=== PATIENT | male | born 1935 | race Two or more races ===

== ENCOUNTER 2018-10-12 13:35 | Inpatient (IN) | payer MEDICARE ==
[2018-10-12] VITALS (29 sets, daily range): BP systolic 69–140; BP diastolic 50–89; O2SAT 100
[~2018-10-12] VITALS: Ht 142.2 cm; Wt 63.6 kg
[2018-10-12 14:02] LABS: BASO % 0.1 % (0.0-1.0); EOS % 0.1 % (0.0-3.0); HEMATOCRIT 45.3 % (42.0-52.0); HEMOGLOBIN 15.8 g/dl (13.5-17.5); LYMPH # 1.7 10^3/uL (1.5-4.5); LYMPH % 12.4 % (24.0-44.0); MEAN CORPUSCULAR HEMOGLOBIN 34.1 pg (27.0-33.0); MEAN CORPUSCULAR HGB CONC 34.9 g/dl (32.0-36.5); MEAN CORPUSCULAR VOLUME 97.8 fl (80.0-96.0); MONO # 0.8 10^3/uL (0.0-0.8); MONO % 5.5 % (0.0-5.0); NEUTROPHILS # 11.1 10^3/uL (1.8-7.7); NEUTROPHILS % 80.7 % (36.0-66.0); PLATELET COUNT, AUTOMATED 274 10^3/uL (150-450); RED BLOOD COUNT 4.63 10^6/uL (4.30-6.10); WHITE BLOOD COUNT 13.8 10^3/uL (4.0-10.0)
[2018-10-12 14:08] LABS: ABG BASE EXCESS -7.7 (-2.0-2.0); ABG HCO3 23.1 MEQ/L (22.0-26.0); ABG O2 SATURATION 71.4 % (95.0-99.0); ABG PARTIAL PRESSURE O2 51.2 mmHg (75.0-100.0); ABG STANDARD HCO3 17.7 MEQ/L (22.0-26.0); ABG TOTAL CO2 25.3 MEQ/L (23.0-31.0)
[2018-10-12] MEDS ORDERED: ETOMIDATE INJ 20MG/10ML VIAL IV STA (14:08)
[2018-10-12] MEDS ORDERED: SUCCINYLCHOLINE INJ 200 MG/10 ML VIAL (J0330) IV STA (14:08)
[2018-10-12 14:16] LABS: ABG PARTIAL PRESSURE CO2 71.1 mmHg (35.0-45.0)
--- NOTE | 2018-10-12 15:02 | REP ---
Clinical: Status post intubation. Comparison: None. Findings: Endotracheal tube appears to be at the level of the maris/right mainstem bronchus and warrants repositioning. Tortuous thoracic aorta noted. Cardiac silhouette is within normal limits. Lung calzada demonstrate chronic-appearing interstitial changes without obvious focal consolidation, effusion, or pneumothorax. Skeletal structures intact. Impression: Cannot exclude right mainstem intubation and repositioning to the endotracheal tube may be warranted. Electronically Signed by Hiram Conrad MD 10/12/2018 02:54 P
[2018-10-12 15:11] LABS: AMPHETAMINES LEVEL URINE NEGATIVE (NEGATIVE); BARBITURATES URINE NEGATIVE (NEGATIVE); BENZODIAZEPINES URINE NEGATIVE (NEGATIVE); CANNABINOIDS URINE NEGATIVE (NEGATIVE); COCAINE METABOLITE URINE NEGATIVE (NEGATIVE); METHADONE URINE NEGATIVE (NEGATIVE); OPIATES URINE NEGATIVE (NEGATIVE); PHENCYCLIDINE URINE NEGATIVE (NEGATIVE)
[2018-10-12 15:15] LABS: ACETAMINOPHEN LEVEL < 2.0 UG/ML (10.0-30.0); ALT/SGPT 32 U/L (12-78); BILIRUBIN,DIRECT 0.2 MG/DL (0.0-0.2); BILIRUBIN,TOTAL 0.7 MG/DL (0.2-1.0); BLOOD UREA NITROGEN 36 MG/DL (7-18); CALCIUM LEVEL 7.7 MG/DL (8.8-10.2); CARBON DIOXIDE LEVEL 25 MEQ/L (21-32); CHLORIDE LEVEL 101 MEQ/L (98-107); CPK CREATINE PHOSPHOKINASE 7163 U/L (39-308); CREATININE FOR GFR 1.31 MG/DL (0.70-1.30); ETHYL ALCOHOL (ETHANOL) 0.003 % (0.000-0.010); GLOMERULAR FILTRATION RATE 59.4 (>49); GLUCOSE, FASTING 202 MG/DL (70-100); POTASSIUM SERUM 2.9 MEQ/L (3.5-5.1); SALICYLATE LEVEL < 1.7 MG/DL (5.0-30.0); SODIUM LEVEL 140 MEQ/L (136-145); TOTAL PROTEIN 6.9 GM/DL (6.4-8.2)
[2018-10-12] MEDS ORDERED: MIDAZOLAM INJ 2 MG/2 ML VIAL (J2250) IV STA (15:30)
[2018-10-12] MEDS ORDERED: NS 1,000 ML IV SCH (15:30)
--- NOTE | 2018-10-12 15:44 | REP ---
Clinical: Altered mental status. Findings: Age-related atrophy and microvascular ischemic changes are appreciated. The ventricles and sulci are symmetric. Smart-white differentiation is maintained. There is no evidence for acute intracranial hemorrhage, mass/mass effect, pathology or infarction. No extra-axial fluid collection. Calvarium is intact. Paranasal sinuses and mastoid air cells are clear. Impression: Age related atrophy and microvascular ischemic changes. No acute intracranial hemorrhage, infarction, or mass/mass effect. Electronically Signed by Hiram Conrad MD 10/12/2018 03:35 P
[2018-10-12 15:47] LABS: MAGNESIUM LEVEL 2.9 MG/DL (1.8-2.4); PHOSPHORUS LEVEL 6.4 MG/DL (2.5-4.9)
--- NOTE | 2018-10-12 15:49 | REP ---
Clinical: Altered mental status. Technique: Axial noncontrast images from the thoracic inlet to the upper abdomen with coronal and sagittal re-formations. Findings: Endotracheal tube approximately 1.5 cm above the maris. Nasogastric tube courses below left hemidiaphragm and distended fluid-filled esophagus and stomach are appreciated. Mediastinum demonstrates atherosclerotic changes to the thoracic aorta and coronary arteries along with ectasia to the thoracic aorta and cardiomegaly. Small pericardial fluid is nonspecific. Nonspecific mediastinal lymph nodes measure up to approximately 9 mm short axis diameter. The bilateral lung calzada demonstrate chronic age-related interstitial changes along with mild bronchiectasis and trace posterobasilar atelectasis. No significant focal consolidation, pleural effusion, or pneumothorax. Impression: 1. Distended fluid-filled esophagus and stomach. 2. Chronic pleuroparenchymal changes with trace posterobasilar atelectasis. 3. Cardiomegaly and ectatic thoracic aorta with atherosclerotic changes of the aorta and coronary arteries. Electronically Signed by Hiram Conrad MD 10/12/2018 03:40 P
--- NOTE | 2018-10-12 15:53 | REP ---
Clinical: Altered mental status. Technique: Axial noncontrast images from the lung bases to the pubic symphysis with coronal and sagittal re-formations. Comparison: None. Findings: Lung bases demonstrate chronic interstitial changes and mild bronchiectasis with trace posterobasilar atelectasis. Liver, spleen, pancreas, gallbladder, and bilateral adrenal glands are normal. The kidneys demonstrate hypodensities which may represent cysts. No perinephric stranding or hydroureteronephrosis. The enteric system demonstrates distended fluid-filled esophagus and moderate fluid-filled distension to the stomach. Evaluation of the small and large bowel suggest the possibility of enteritis and less likely early small bowel obstruction. Colonic diverticula noted without acute diverticulitis. Pelvis demonstrates a Glass catheter within the bladder. Prostate gland is within normal limits for age. No definite ascites. No free air. No obvious adenopathy. Atherosclerotic changes of the aorta and vasculature without aneurysm. Musculoskeletal structures demonstrate age-related degenerative changes. Impression: 1. Fluid-filled esophagus and moderate fluid-filled stomach. 2. Moderate air-filled prominent appearance to the small bowel raises the possibility of ileus versus early obstruction and correlation/follow-up may be warranted. 3. Scattered diverticula without acute diverticulitis. Electronically Signed by Hiram Conrad MD 10/12/2018 03:44 P
[2018-10-12] MEDS ORDERED: ETOMIDATE INJ 20MG/10ML VIAL ONE (16:02)
[2018-10-12] MEDS ORDERED: SUCCINYLCHOLINE 100 MG/5 ML SYRINGE (J0330) ONE (16:02)
[2018-10-12 16:43] LABS: ABG BASE EXCESS -3.7 (-2.0-2.0); ABG HCO3 21.8 MEQ/L (22.0-26.0); ABG PARTIAL PRESSURE CO2 40.8 mmHg (35.0-45.0); ABG PARTIAL PRESSURE O2 84.9 mmHg (75.0-100.0); ABG STANDARD HCO3 21.4 MEQ/L (22.0-26.0); ABG pH (ARTERIAL) 7.345 UNITS (7.350-7.450)
[2018-10-12 16:58] LABS: INR 1.05; PROTHROMBIN TIME 13.8 SECONDS (12.1-14.4)
[2018-10-12] MEDS ORDERED: MIDAZOLAM HCL 50 MG in D5W 40 ML IV SCH (17:00)
[2018-10-12 17:01] LABS: APPEARANCE, URINE CLEAR (CLEAR); BACTERIA, URINE AUTO NEGATIVE (NEGATIVE); BILIRUBIN, URINE AUTO NEGATIVE (NEGATIVE); BLOOD, URINE BLOOD 2+ (NEGATIVE); COLOR, URINE YELLOW (YELLOW); GLUCOSE, URINE (UA) AUTO NEGATIVE (NEGATIVE); KETONE, URINE AUTO 1+ mg/dL (NEGATIVE); LEUKOCYTE ESTERASE, URINE AUTO NEGATIVE (NEGATIVE); MUCUS, URINE SMALL (NEGATIVE); NITRITE, URINE AUTO NEGATIVE (NEGATIVE); PROTEIN, URINE AUTO 1+ mg/dL (NEGATIVE); RBC, URINE AUTO 1 /HPF (0-3); SPECIFIC GRAVITY URINE AUTO 1.021 (1.002-1.035); SQUAMOUS EPITHELIAL CELL UR AU 0 /HPF (0-6); UROBILINOGEN, URINE AUTO 0.2 mg/dL (0.0-2.0); WBC, URINE AUTO 1 /HPF (0-3)
[2018-10-12 17:11] LABS: MYOGLOBIN SCREEN, URINE POSITIVE (NEGATIVE); OSMOLALITY URINE 720 MOSM/KG (500-800)
[2018-10-12] MEDS ORDERED: PROPOFOL 1,000 MG in APPROPRIATE DILUENT 1 EA IV SCH ×2 (17:15→17:54)
[2018-10-12 17:18] LABS: MYOGLOBIN 16504 NG/ML (16-116)
[2018-10-12] MEDS ORDERED: fentaNYL 100 MCG/2 ML INJECTION (J3010) IV PRN (18:00)
[2018-10-12 19:19] LABS: OSMOLALITY SERUM 304 MOSM/KG (275-295)
[2018-10-12] MEDS ORDERED: PANTOPRAZOLE 40MG INJ (PROTONIX) (C9113) IV ONE (19:30)
[2018-10-12 19:58] LABS: BLOOD UREA NITROGEN 36 MG/DL (7-18); CALCIUM LEVEL 7.6 MG/DL (8.8-10.2); CARBON DIOXIDE LEVEL 22 MEQ/L (21-32); CHLORIDE LEVEL 107 MEQ/L (98-107); CPK CREATINE PHOSPHOKINASE 9894 U/L (39-308); CREATININE FOR GFR 1.01 MG/DL (0.70-1.30); FREE THYROXINE INDEX 3.2 % (1.4-3.8); GLOMERULAR FILTRATION RATE > 60.0 (>49); GLUCOSE, FASTING 125 MG/DL (70-100); MB/CK RELATIVE INDEX 0.32 (< OR =4); PHOSPHORUS LEVEL 4.8 MG/DL (2.5-4.9); POTASSIUM SERUM 2.8 MEQ/L (3.5-5.1); SODIUM LEVEL 143 MEQ/L (136-145); T UPTAKE 32 % (33-40); THYROID STIMULATING HORMONE 0.755 uIU/ML (0.358-3.740); THYROXINE (T4) 10.1 UG/DL (4.5-12.0); TROPONIN I 0.06 NG/ML (< 0.10); URIC ACID 5.5 MG/DL (3.5-7.2)
[2018-10-12] MEDS: NS 1,000 ML IV SCH ×2 (20:12→23:21)
[2018-10-12] MEDS: PANTOPRAZOLE SODIUM 40 MG in D5W 50 ML IV SCH ×2 (20:13→23:21)
[2018-10-12] MEDS: CHLORHEXIDINE GLUCONATE 0.12 % 15ML UDC (PERIDEX ORAL RINSE) MT SCH (20:13)
[2018-10-12] MEDS ORDERED: NS 1,000 ML IV ONE ×2 (20:15→22:30)
[2018-10-12 20:27] LABS: HEMATOCRIT 42.9 % (42.0-52.0); HEMOGLOBIN 14.6 g/dl (13.5-17.5); MEAN CORPUSCULAR HEMOGLOBIN 33.1 pg (27.0-33.0); MEAN CORPUSCULAR VOLUME 97.3 fl (80.0-96.0); PLATELET COUNT, AUTOMATED 257 10^3/uL (150-450); RED BLOOD COUNT 4.41 10^6/uL (4.30-6.10); WHITE BLOOD COUNT 11.5 10^3/uL (4.0-10.0)
[2018-10-12 20:29] LABS: MAGNESIUM LEVEL 2.3 MG/DL (1.8-2.4)
[2018-10-12] MEDS: KCL 10MEQ/100ML SWI (KRUN) 10 MEQ in APPROPRIATE DILUENT 1 EA IV SCH ×3 (20:41→23:22)
[2018-10-12] MEDS ORDERED: ENOXAPARIN 40 MG/0.4 ML SYRINGE (J1650) SC SCH (21:00)
[2018-10-12] MEDS ORDERED: HEPARIN SOD (PORCINE) 5000 UNITS/ML VIAL SQ SCH (21:00)
[2018-10-12] MEDS ORDERED: PANTOPRAZOLE 40MG INJ (PROTONIX) (C9113) IV SCH (21:00)
[2018-10-12] MEDS ORDERED: HYDROCORTISONE 100 MG/2 ML VIAL (J1720) IV ONE (22:30)
[2018-10-12] MEDS: D5W 1,000 ML IV SCH (23:22)
[2018-10-13] VITALS (42 sets, daily range): BP systolic 94–128; BP diastolic 58–79; O2SAT 100
[2018-10-13] MEDS: NS 1,000 ML IV SCH ×5 (00:38→15:15)
[2018-10-13 01:32] LABS: ALBUMIN 2.3 GM/DL (3.2-5.2); ALT/SGPT 30 U/L (12-78); BILIRUBIN,TOTAL 1.3 MG/DL (0.2-1.0); BLOOD UREA NITROGEN 38 MG/DL (7-18); CARBON DIOXIDE LEVEL 7 MEQ/L (21-32); CHLORIDE LEVEL 115 MEQ/L (98-107); CREATININE FOR GFR 1.26 MG/DL (0.70-1.30); GLOMERULAR FILTRATION RATE 58.5 (>35); GLUCOSE, FASTING 67 MG/DL (70-100); POTASSIUM SERUM 3.7 MEQ/L (3.5-5.1); SODIUM LEVEL 142 MEQ/L (136-145); TOTAL PROTEIN 5.3 GM/DL (6.4-8.2)
[2018-10-13] MEDS ORDERED: GLUCOSE 4 GM CHEW TABLET PO PRN (01:45)
[2018-10-13] MEDS ORDERED: GLUCAGON FOR INJ 1 MG VIAL (J1610) SC PRN (01:45)
[2018-10-13] MEDS ORDERED: DEXTROSE 50% 50 ML SYRINGE IV PRN (01:45)
[2018-10-13] MEDS: PANTOPRAZOLE SODIUM 40 MG in D5W 50 ML IV SCH ×4 (03:35→20:17)
[2018-10-13] MEDS: PROPOFOL 1,000 MG in APPROPRIATE DILUENT 1 EA IV SCH ×3 (03:35→20:18)
[2018-10-13 05:49] LABS: ABG BASE EXCESS -6.1 (-2.0-2.0); ABG HCO3 17.2 MEQ/L (22.0-26.0); ABG O2 SATURATION 95.6 % (95.0-99.0); ABG PARTIAL PRESSURE CO2 27.9 mmHg (35.0-45.0); ABG PARTIAL PRESSURE O2 80.2 mmHg (75.0-100.0); ABG STANDARD HCO3 19.5 MEQ/L (22.0-26.0); ABG pH (ARTERIAL) 7.407 UNITS (7.350-7.450)
--- NOTE | 2018-10-13 05:55 | ECGEPIP ---
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
[2018-10-13 06:12] LABS: HEMATOCRIT 36.9 % (42.0-52.0); MEAN CORPUSCULAR HEMOGLOBIN 33.1 pg (27.0-33.0); MEAN CORPUSCULAR VOLUME 103.7 fl (80.0-96.0); RED BLOOD COUNT 3.56 10^6/uL (4.30-6.10); WHITE BLOOD COUNT 9.6 10^3/uL (4.0-10.0)
[2018-10-13 06:33] LABS: HEMOGLOBIN 11.8 g/dl (13.5-17.5)
[2018-10-13 06:34] LABS: PLATELET COUNT, AUTOMATED 193 10^3/uL (150-450)
[2018-10-13 06:37] LABS: EOSINOPHILS 1 % (0-5); LYMPHOCYTES 6 % (16-52); MONOCYTES 8 % (0-8); NEUTROPHILS 84 % (35-75); PLATELET ESTIMATE NORMAL (NORMAL)
--- NOTE | 2018-10-13 06:37 | REP ---
Clinical: Status post intubation. Comparison: 01/10/2018. Findings: Endotracheal tube is 1.8 cm above the maris. Nasogastric tube courses below the left hemidiaphragm. Lung calzada demonstrate diffuse chronic interstitial changes and trace left basilar atelectasis cannot be excluded. No obvious effusion. No pneumothorax. Skeletal structures stable. Impression: Left basilar atelectasis cannot be excluded. Electronically Signed by Hiram Conrad MD 10/13/2018 06:29 A
[2018-10-13 06:53] LABS: ALBUMIN 2.8 GM/DL (3.2-5.2); ALT/SGPT 30 U/L (12-78); BILIRUBIN,TOTAL 0.9 MG/DL (0.2-1.0); BLOOD UREA NITROGEN 34 MG/DL (7-18); CALCIUM LEVEL 6.6 MG/DL (8.8-10.2); CARBON DIOXIDE LEVEL 19 MEQ/L (21-32); CHLORIDE LEVEL 110 MEQ/L (98-107); CPK CREATINE PHOSPHOKINASE 7976 U/L (39-308); CREATININE FOR GFR 1.14 MG/DL (0.70-1.30); GLOMERULAR FILTRATION RATE > 60.0 (>35); GLUCOSE, FASTING 95 MG/DL (70-100); MAGNESIUM LEVEL 1.9 MG/DL (1.8-2.4); PHOSPHORUS LEVEL 4.1 MG/DL (2.5-4.9); POTASSIUM SERUM 4.6 MEQ/L (3.5-5.1); SODIUM LEVEL 140 MEQ/L (136-145); TOTAL PROTEIN 5.3 GM/DL (6.4-8.2)
[2018-10-13] MEDS: CHLORHEXIDINE GLUCONATE 0.12 % 15ML UDC (PERIDEX ORAL RINSE) MT SCH ×2 (08:15→20:17)
[2018-10-13] MEDS ORDERED: CALCIUM GLUCONATE 1,000 MG in D5W MINI-BAG PLUS 100 ML IV ONE (10:15)
[2018-10-13] MEDS: AMPICILLIN SOD/SULBACTAM SOD 3 GM in D5W MINI-BAG PLUS 100 ML IV SCH ×3 (12:47→23:43)
[2018-10-13] MEDS: D5W 1,000 ML IV SCH (12:49)
--- NOTE | 2018-10-13 13:38 | HPE ---
DATE OF ADMISSION: 10/12/2018 CHIEF COMPLAINT: Hypothermia. HISTORY OF PRESENT ILLNESS: The patient is a estimated 62-year-old male, presumed to be Mr. Denise Quesada, although it is unconfirmed. He was found by EMS sitting outside a parked car with a six pack of beer next to him, of which two had been emptied, as well as with an empty bottle of diphenhydramine. The patient did have a pulse and was breathing, however he was very lethargic and minimally responsive. On arrival to the ED, he was noted to have some dried blood secretions around his nares and on his face. When he arrived to the ED, he was minimally responsive with a respiratory rate of 6-8 breaths per minute, so he was intubated for airway protection and respiratory depression. On arrival they were initially unable to obtain a rectal temperature, his body was cold to the touch. He then had a temperature of approximately 75 degrees Fahrenheit. The patient was started on active rewarming with warmed saline as well as with warmed ventilator and Sissy Hugger and heating lamps. The patient then reportedly had some mild agitation and was given Versed 2 mg IV push for sedation. The patient had a business card in his possession with the name of Denise Quesada and the car was also registered to a Mr. Denise Quesada, so it was presumed that this is who he is. There was no other contact information noted. PAST MEDICAL HISTORY: Unknown. PAST SURGICAL HISTORY: Unknown. ALLERGIES: Unknown. HOME MEDICATIONS: Unknown. PHYSICAL EXAMINATION: VITALS: Temperature 87 degrees Fahrenheit, pulse 90, blood pressure 162/126, saturating 96% on ventilator at 40% FiO2. GENERAL: The patient is not sedated. He is lethargic, withdraws to pain, but is no following commands. HEENT: There is dried blood noted in his nares as well as some dried blood on his face and a lip laceration on the right, which is oozing some blood. He is intubated, has an OG tube in place. His pupils are reactive, but unequal. Appears to have a surgical pupil in the right eye. Trachea is supple and midline. CVS: On the chest there is no evidence of any injuries. regular rate and rhythm, S1, S2. No murmurs are auscultated. Lungs: He has ventilator breath sounds bilaterally as well as some crackles at the bases. Abdomen: Soft, nontender. Does not appear distended. Extremities: There is no lower extremity edema noted bilaterally. There is some scabbed lesions and ecchymosis on his knees and elbows bilaterally LABS: WBC 13.8, hemoglobin 15.8, platelets 274. Sodium 140, potassium 2.9, chloride 101, bicarb 25, BUN 36, creatinine 1.31, glucose 202, lactic acid was 3.9, phosphorous 6.4, magnesium 2.9, AST 86, ALT 32, alkaline phosphatase 62, CPK 7163, myoglobin 16,504. TSH was 1.090. Coags: INR 1.05. Urine toxicology was negative. Salicylate and acetaminophen levels were low. Alcohol was 0.003. ABG initially was 7.130, pCO2 of 71.1, pO2 of 51.2. Repeat ABG was 7.345, pCO2 of 40.8, and pO2 of 84.9. IMAGING: The patient had a head CT done which did not show any acute intracranial hemorrhage, infarct or mass. There was some age related atrophy and microvascular ischemic changes. Chest CT showed endotracheal tube approximately 1.5 cm above the maris. NG tube is below the left diaphragm with distended fluid filled esophagus and stomach. In the lungs there is some atelectasis at the bases and some mild bronchiectasis. No focal consolidation. No significant pleural effusion. There are some atherosclerotic changes and the thoracic aorta appears large. There is a small pericardial effusion and some mildly prominent mediastinal lymph nodes. The esophagus also appears thickened. On the CT abdomen and pelvis, there is some fluid filled esophagus and moderate fluid filled distention to the stomach. There is some air filled prominent appearance of the small bowel, but no transition point, however, possible early ileus. There is colonic diverticula without acute diverticulitis. There is no obvious ascites or adenopathy. There is a likely renal cyst present. ASSESSMENT/PLAN: The patient is an estimated 62-year-old male with unknown medical history who was found outside severely hypothermic and unresponsive. Possible suicide attempt as the patient was found with an empty bottle of diphenhydramine sleeping aids as well as some alcohol, although this is unclear. He presented hypothermic and bradypneic with a respiratory acidosis. He was intubated and started on active rewarming. The patient was noted to have some evidence of dried blood in the nares as well as with OG tube suctioning some dark coffee ground material. Neuro- metabolic encephalopathy in setting of possible diphenhydramine ingestion and hypothermia. - sedated with propofol on ventilator - urine tox and aspirin and tylenol levels negative - cont monitor mental status and neurologic status CVS- EKG with some nonspecific ST changes possibly in setting of hypothermia. first set CE negative. will cont to trend CE and repeat EKG. - monitor BP, was initially hypertensive in ED Pulm- intubated for respiratory depression and AMS - noted to have evidence of dried blood on face and with intubation dark black material suctioned from ETT. - likely with aspiration, will cont to monitor for signs of possible aspiration PNA - cont ventilator with PRVC, wean down FiO2 as tolerated. - vent bundle, HOB elevation and chlorhexidine mouth swabs - daily CXR and ABGs Renal- electrolyte abnormalities in setting hypothermia. Also with TOMAS and myoglobinuria with elevated CPK consistent with rhabdomyolysis in setting hypothermia. - cont IVF with NS at 250ml/hr and monitor urine output - trend CPK and renal function - monitor electrolytes frequently during rewarming and correct as needed - check uric acid level - metabolic and respiratory acidosis improving. trend lactic acid. there was no osmolar gap suggesting other toxic ingestion/overdose GI- dark coffee ground material from OGT on suction. - start PPI drip and monitor H/H. expected to trend down with rewarming - type and screen. Deep vein thrombosis (DVT) prophylaxis with SCDs Will continue to attempt to get collateral information about the patient's identity and his health information. SKY
[2018-10-13 14:58] LABS: TROPONIN I 2.58 NG/ML (< 0.10)
[2018-10-13 17:23] LABS: HEMATOCRIT 37.6 % (42.0-52.0); HEMOGLOBIN 12.7 g/dl (13.5-17.5); MEAN CORPUSCULAR HEMOGLOBIN 33.5 pg (27.0-33.0); MEAN CORPUSCULAR HGB CONC 33.8 g/dl (32.0-36.5); MEAN CORPUSCULAR VOLUME 99.2 fl (80.0-96.0); PLATELET COUNT, AUTOMATED 205 10^3/uL (150-450); RED BLOOD COUNT 3.79 10^6/uL (4.30-6.10)
[2018-10-13] MEDS: HEPARIN SOD (PORCINE) 5000 UNITS/ML VIAL SQ SCH (20:17)
[2018-10-14] VITALS (13 sets, daily range): BP systolic 122–162; BP diastolic 66–81; O2SAT 94
[2018-10-14] MEDS: PANTOPRAZOLE SODIUM 40 MG in D5W 50 ML IV SCH ×2 (02:15→06:15)
[2018-10-14] MEDS: NS 1,000 ML IV SCH ×4 (02:16→10:38)
[2018-10-14] MEDS: D5W 1,000 ML IV SCH ×3 (02:45→16:40)
[2018-10-14 05:24] LABS: BASO % 0.1 % (0.0-1.0); EOS % 0.1 % (0.0-3.0); HEMATOCRIT 32.3 % (42.0-52.0); HEMOGLOBIN 11.1 g/dl (13.5-17.5); LYMPH # 1.1 10^3/uL (1.5-4.5); LYMPH % 14.5 % (24.0-44.0); MEAN CORPUSCULAR HEMOGLOBIN 32.8 pg (27.0-33.0); MEAN CORPUSCULAR HGB CONC 34.4 g/dl (32.0-36.5); MEAN CORPUSCULAR VOLUME 95.6 fl (80.0-96.0); MONO # 0.7 10^3/uL (0.0-0.8); MONO % 9.1 % (0.0-5.0); NEUTROPHILS # 5.7 10^3/uL (1.8-7.7); NEUTROPHILS % 75.8 % (36.0-66.0); PLATELET COUNT, AUTOMATED 163 10^3/uL (150-450); RED BLOOD COUNT 3.38 10^6/uL (4.30-6.10); WHITE BLOOD COUNT 7.5 10^3/uL (4.0-10.0)
[2018-10-14 05:43] LABS: INR 1.25; PROTHROMBIN TIME 15.9 SECONDS (12.1-14.4)
[2018-10-14 05:44] LABS: PARTIAL THROMBOPLASTIN TIME 39.1 SECONDS (25.4-37.6)
[2018-10-14] MEDS: AMPICILLIN SOD/SULBACTAM SOD 3 GM in D5W MINI-BAG PLUS 100 ML IV SCH ×4 (05:47→23:00)
[2018-10-14] MEDS: LEVOTHYROXINE 112MCG TABLET (0.112MG) NG SCH (05:48)
[2018-10-14 06:07] LABS: ABG BASE EXCESS -3.2 (-2.0-2.0); ABG O2 SATURATION 97.5 % (95.0-99.0); ABG PARTIAL PRESSURE O2 96.4 mmHg (75.0-100.0); ABG STANDARD HCO3 21.8 MEQ/L (22.0-26.0); ABG TOTAL CO2 20.9 MEQ/L (23.0-31.0); ABG pH (ARTERIAL) 7.441 UNITS (7.350-7.450)
[2018-10-14 06:12] LABS: ALBUMIN 2.2 GM/DL (3.2-5.2); ALT/SGPT 28 U/L (12-78); BILIRUBIN,TOTAL 0.6 MG/DL (0.2-1.0); BLOOD UREA NITROGEN 13 MG/DL (7-18); CALCIUM LEVEL 6.6 MG/DL (8.8-10.2); CARBON DIOXIDE LEVEL 21 MEQ/L (21-32); CHLORIDE LEVEL 114 MEQ/L (98-107); CPK CREATINE PHOSPHOKINASE 4288 U/L (39-308); CREATININE FOR GFR 0.87 MG/DL (0.70-1.30); GLOMERULAR FILTRATION RATE > 60.0 (>35); GLUCOSE, FASTING 95 MG/DL (70-100); MAGNESIUM LEVEL 1.8 MG/DL (1.8-2.4); MB/CK RELATIVE INDEX 0.15 (< OR =4); PHOSPHORUS LEVEL 2.1 MG/DL (2.5-4.9); POTASSIUM SERUM 3.1 MEQ/L (3.5-5.1); SODIUM LEVEL 144 MEQ/L (136-145); TOTAL PROTEIN 4.6 GM/DL (6.4-8.2); TROPONIN I 1.64 NG/ML (< 0.10)
[2018-10-14] MEDS: PROPOFOL 1,000 MG in APPROPRIATE DILUENT 1 EA IV SCH (06:15)
--- NOTE | 2018-10-14 08:08 | REP ---
Clinical: Status post intubation. Comparison: 10/13/2018. Findings: The endotracheal tube approximately 1.8 cm above the maris. Nasogastric tube courses below left hemidiaphragm. Left lower lobe and retrocardiac opacities may be slightly increased from prior examination. Skeletal structures stable. Impression: 1. Endotracheal tube 1.8 cm above the maris. 2. Left lower lobe/retrocardiac opacities increased from prior examination. Electronically Signed by Hiram Conrad MD 10/14/2018 07:58 A
[2018-10-14] MEDS ORDERED: KCL 20MEQ IN 100ML SWI (KRUN) 20 MEQ in APPROPRIATE DILUENT 1 EA IV ONE ×2 (08:30)
[2018-10-14] MEDS ORDERED: MAG SULF 1GM/100ML (MAG RUN) 1 GM in APPROPRIATE DILUENT 1 EA IV ONE (09:00)
[2018-10-14] MEDS ORDERED: POTASSIUM CHLORIDE 10% LIQ 20 MEQ/15 ML UDC PO ONE (09:00)
[2018-10-14] MEDS ORDERED: NEUTRA-PHOS 1.25 GM PACKET PO SCH (09:00)
[2018-10-14] MEDS ORDERED: FUROSEMIDE 40 MG/4 ML VIAL (J1940) IV ONE (09:00)
[2018-10-14] MEDS: KCL 10MEQ/100ML SWI (KRUN) 10 MEQ in APPROPRIATE DILUENT 1 EA IV SCH ×8 (09:14→23:00)
--- NOTE | 2018-10-14 09:16 | ECGEPIP ---
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
[2018-10-14] MEDS ORDERED: DEXTROSE 50% 50 ML SYRINGE IV STA (09:17)
[2018-10-14] MEDS: dexmedeTOMidine 200 MCG in APPROPRIATE DILUENT 1 EA IV SCH ×3 (09:17→10:17)
[2018-10-14] MEDS: HEPARIN SOD (PORCINE) 5000 UNITS/ML VIAL SQ SCH ×2 (09:29→21:05)
[2018-10-14] MEDS: CHLORHEXIDINE GLUCONATE 0.12 % 15ML UDC (PERIDEX ORAL RINSE) MT SCH (09:29)
--- NOTE | 2018-10-14 11:53 | CCN ---
DATE: 10/13/2018 Patient was seen and examined this morning. The patient's family was able to be contacted and his identity confirmed. The patient is from [place], [place] where he lives with his . He apparently had an argument with his on 10/09/2018, she did not see him Friday night and did not see him as well on Friday by the time she had woken up. His car did not appear to be there. The patient's thought that he had gone to stay in a hotel after the argument, but she had not heard from him for the past few days until he was found here in [place]. The patient's family otherwise denies that he had any symptom of depression or other mood changes leading up to this. He also was not noted to have any complaints of chest pain. No coughing. No fevers or chills. He was apparently golfing and doing his normal activities in his usual state of health prior to his. Of note, the patient's age was also confirmed to be 83 years old not the approximated 62 as estimated on admission. For his medical history, the patient's reported that he has a history of hypertension and hyperlipidemia as well as hypothyroidism and benign prostatic hypertrophy (BPH). The patient overnight was warmed up and the Sissy Hugger was discontinued. After that, he was noted to be mildly febrile with a T-max of 100.2. The patient is currently intubated and sedated. He is responsive minimally to painful stimulation and appears to open his eyes to voice. PHYSICAL EXAMINATION: VITALS: Temperature T-max 100.2, pulse 60, respirations 18, blood pressure 113/66, saturating 97% on 21% FiO2 on ventilator. INTAKE AND OUTPUT: Ins 3.6 liters, out 2 liters, net positive 1.6 liters. GENERAL: The patient is sedated. Responsive to painful stimuli. HEENT: He is normocephalic, is noted to have a laceration on his lip and occasional oozing. There is no bruising or ecchymoses to the face. There is some dried blood in his nares. NECK: Supple. Trachea is midline. CARDIAC: Regular rate and rhythm, S1 and S2. No murmurs appreciated. LUNGS: Coarse breath sounds bilaterally with occasional crackles at the bases. ABDOMEN: Soft, nondistended. No grimacing to palpation. EXTREMITIES: There is no lower extremity edema noted bilaterally. There is ecchymosis and hyperpigmentation in his knees bilaterally with some scabbing wounds. There is also some bruising and ecchymosis in his elbows as well bilaterally. On the knees, there does appear to be some fluctuance. LABS: WBC 9.6, hemoglobin 11.8, platelets 193. Sodium 140, potassium 4.6, chloride 110, bicarb 19, BUN 34, creatinine 1.14, glucose 95. Lactate trended down to 3.4, calcium was 6.6, corrected to 7.6. His repeat troponin is pending still. His repeat CPK has trended down to 7976. IMAGING: Chest x-ray done this morning shows the ET tube is approximately 2 cm above the maris and the NG tube is in place below the left diaphragm. There is some possible basilar atelectasis. ASSESSMENT/PLAN: Patient is an 83-year-old male with a past medical history of hypertension, hyperlipidemia, hypothyroidism, BPH, GERD, who was found outdoors minimally responsive, was also noted to have a bottle of Benadryl next to him with a suspicion of ingestion and overdose. The patient was hypothermic on presentation and lethargic and was intubated for airway protection. There was also noted some dried blood in his nares, and upon intubation there was suctioning of coffee ground material from his ET tube and upon place of the OG tube there was copious amounts of dark coffee ground material. The patient has been effectively rewarmed at this time. He was noted this morning to have a low grade fever. There was concern for possible aspiration with possible aspiration pneumonia given his presentation. Neurologic. The patient has metabolic encephalopathy in the setting of possible overdose as well as hypothermia. He had a head CT on admission which did not show any acute intracranial pathology, and his urine toxicology on admission was also negative. The patient may have had an ingestion of Benadryl. Unclear if this was a suicide attempt. His family had denied any evidence of depression or suicidal ideation leading up to this, except that he had an argument with his a few days ago and then was not seen since then The patient currently is sedated with propofol while intubated. I will perform a sedation vacation to assess his mental status. Cardiovascular. The patient has a history of hypertension. Overnight he was periodically hypotensive, but responded with IV fluid boluses. His blood pressure now remains stable. He was also given hydrocortisone 50 mg overnight for possible adrenal insufficiency in the setting his hypothermia and hypotension as well. Will hold off for now. Will follow-up repeat cardiac enzymes. His CK is elevated, likely in the setting of rhabdomyolysis for his hypothermia. I will hold antihypertensive medications for now. Pulmonary. The patient was intubated given his depressed mental status and bradypnea. He had a CT chest done which showed some atelectasis and mild bronchiectasis. There was concern for possible aspiration given that he was found with dried blood on his face from his nares. He was also noted to have a low grade fever this morning and on chest x-ray there is possible faint increased opacity in the left base. Therefore, the patient was started on Unasyn for possible aspiration pneumonia. Will check a sputum culture and blood culture. UA was negative on admission. Will continue the patient on PRVC. He has been weaned down to an FiO2 of 20% at this time. Will continue with daily ABG and chest x-ray. Continue with vent bundles with head of bed elevation and chlorhexidine mouthwash. Will continue with daily weaning trials and sedation vacation. Abdomen. Patient was noted after placement of the OG tube to suction to have coffee ground material, possibly with an upper gastrointestinal bleed. He does have a history of GERD. On the CT of the abdomen there was some fluid filled esophagus and fluid filled stomach with some air filled small bowel suggesting a possible ileus. There was no definite transition point noted. His abdominal exam today showed nondistended soft abdomen, did not appear to be any tenderness palpation. He has not had any bowel movements. His OG tube output has decreased. There was only minimal coffee ground material. He was started on a PPI drip yesterday. Will continue with the PPI drip. The patient had negative toxicology with a negative Tylenol and negative salicylate level. Continue OG tube to low intermittent suction at this time. Renal. The patient has acute kidney injury (TOMAS) as well as elevated CPK with myoglobinuria consistent with rhabdomyolysis. He was given IV fluids at maintenance as well as IV fluid boluses and his CPK is trending down and his creatinine has also improved. Will continue with normal saline at 250 mL an hour. The patient was also noted to be hypoglycemic and was on D5 at 75 mL an hour. The patient also had significant electrolyte derangement in the setting of his hypothermia, which has improved now. Will continue to monitor electrolytes and to replete as needed. The patient has a history of hypothyroidism and we now have his home medications, therefore will restart his Synthroid at 112 mcg daily. His TSH and free T4 were within normal limits on admission. Continue deep vein thrombosis (DVT) prophylaxis with thromboembolic deterrent stockings (TEDS) and sequential compression devices (SCD). GOALS OF CARE: Patient is a FULL CODE. His is in [place]. His daughters are in [place] and they are trying to see if they can be able to come and visit the patient. Total critical care time spent not including procedures approximately 55 minutes MTDD
--- NOTE | 2018-10-14 12:37 | ECHO ---
DATE OF PROCEDURE: 10/13/2018 REFERRING PHYSICIAN: Dr. Virginia Jenkins INDICATION: Elevated troponin, ischemia. The patient measures 4 feet 8 inches, weight 131 pounds. DIMENSIONS: IVS: 1.0 LV: 4.1 LVPW: 1.0 LA: 3.9 Aorta: 3.9 Ascending aorta: 4.2 IVC: 2.3 Mitral E-wave velocity: 110, A-wave 47 E prime septal: 5.2 E prime lateral: 7.6 FINDINGS: The study is of acceptable technical quality. Left ventricle is of normal size and overall normal systolic function. I do not appreciate any distinct segmental wall motion abnormality. Left ventricular ejection fraction (LVEF) is estimated around 60%. Right ventricle does not appear dilated and appears to be normally contractile. Both atria appear normal. Aortic valve has three leaflets. It is sclerotic but mobility is preserved. There are also mild degenerative abnormalities of mitral valves but mobility of leaflet is preserved. Tricuspid and pulmonic valves appear normal. No pericardial effusion is noted. Inferior vena cava is dilated, and there is no appreciable collapse with respiration but patient is intubated and ventilated. Aortic root and aortic arch appear normal. Visualized segment of ascending aorta is dilated at 4.2 cm. Abdominal aorta was poorly visualized but there appear to be atherosclerotic plaques. Doppler interrogation reveals trivial aortic stenosis and mild insufficiency. There is also mild mitral and mild tricuspid insufficiency. Calculated pulmonary artery pressure is at least in high 30s, which would correspond to mild pulmonary hypertension. Trace pulmonic insufficiency seen. Mitral inflow pattern and tissue Doppler imaging of mitral annulus reveal grade 2 diastolic dysfunction. CONCLUSIONS: 1. Study is of acceptable technical quality. 2. Normal LV size with normal LV systolic function and grade 2 diastolic dysfunction. 3. Aortic sclerosis resulting in trivial stenosis and mild insufficiency. 4. Mild mitral insufficiency. 5. Mild tricuspid insufficiency. 6. Elevated central venous pressure and at least mild pulmonary hypertension. COMMENTS: Subacute bacterial endocarditis (SBE) prophylaxis is not recommended. The study does not reveal any obvious wall motion abnormalities to account for elevated troponin. MTDD
--- NOTE | 2018-10-14 16:14 | PHACANCOPD ---
PHARMACY VANCOMYCIN DOSING Pt Demographics Demographics Patient Age:83 , Weight:63.600 , Gender: male Adjusted Body Weight Date: 10/14/18, Adjusted Body Weight: Kg Events Past 24 Hours Events Past 24 Hours: NO: Dialysis, Diuretic Therapy, Change in CrCl, Fever, Elevation in WBC, Pending Diagnostics, Pending Procedures, Other Vancomycin Vancomycin indication: pneumonia Vancomycin Target Ranges: 15-20 mcg/ml Vancomycin Load Y/N: No Load Dose Date Time Vancomycin Load Dose: Date: Time: Vancomycin Dose Date: 10/14/18. Current Vancomycin Dose: [1g IV q12h @16] Intermittent Dosing?: No Labs Labs Item Value Date Time Creatinine 0.87 MG/DL 10/14/18 0458 White Blood Count 9.6 10^3/uL 10/13/18 0601 White Blood Count 8.0 10^3/uL 10/13/18 1534 White Blood Count 7.5 10^3/uL 10/14/18 0458 Micro Microbiology 10/13/18 Blood Culture - Preliminary, Resulted No growth after 24 hours . All specim... 10/13/18 Gram Stain - Final, Resulted 10/13/18 Sputum Culture, Resulted Pending Creatinine Clearance Date:10/14/18. Creatinine Clearance: [~38 ml/min]. Pending Labs Vanco trough scheduled 10/15 @15:00 Assessment and Plan Maintaining Current Dose?: Yes Reason for dose change: No Dose Change Pharmacist Note Pharmacist Note Date: 10/14/18. Pharmacist note: pt has been started on Vancomycin 1g IV q12h for pneumonia. Sputum gram stain showed g+ cocci in ch and cl. He has been continued on Unasyn since yesterday. Pt has not been to our facility before. SCr has been improving since admission. I have a trough scheduled for tomorrow afternoon before the 3rd dose. We will continue to monitor and make adjustments as necessary. Ifeanyi Hopkins Pharm.D. Oct 14, 2018 16:13
[2018-10-14 16:16] LABS: ALBUMIN 2.6 GM/DL (3.2-5.2); ALT/SGPT 41 U/L (12-78); BILIRUBIN,TOTAL 0.9 MG/DL (0.2-1.0); BLOOD UREA NITROGEN 8 MG/DL (7-18); CALCIUM LEVEL 7.4 MG/DL (8.8-10.2); CARBON DIOXIDE LEVEL 25 MEQ/L (21-32); CHLORIDE LEVEL 111 MEQ/L (98-107); CREATININE FOR GFR 0.83 MG/DL (0.70-1.30); GLOMERULAR FILTRATION RATE > 60.0 (>35); GLUCOSE, FASTING 107 MG/DL (70-100); MAGNESIUM LEVEL 2.2 MG/DL (1.8-2.4); POTASSIUM SERUM 2.9 MEQ/L (3.5-5.1); SODIUM LEVEL 144 MEQ/L (136-145); TOTAL PROTEIN 5.5 GM/DL (6.4-8.2)
[2018-10-14] MEDS: VANCOMYCIN HCL 1,000 MG, VIAL MATE ADAPTER 1 EACH in D5W 250 ML IV SCH (16:40)
[2018-10-14] MEDS: KCL 20MEQ in NS 1000ML 1,000 ML IV SCH (16:45)
[2018-10-14] MEDS ORDERED: POTASSIUM CHLORIDE 10 MEQ SR TABLET PO ONE (17:00)
--- NOTE | 2018-10-14 17:42 | CCN ---
DATE: 10/14/2018 Patient was seen and examined today. Overnight he was noted to have a low grade temperature with a maximum temperature of 100.4. His blood pressures have been stable overnight. This morning patient was sedated but arousable and responsive and following commands appropriately. PHYSICAL EXAMINATION: Maximum temperature 100.4 overnight. It was up to 101.1 earlier in the day yesterday. Pulse 65, respirations 20, blood pressure 140/68, oxygen saturation 96% on 21% FiO2. INTAKE AND OUTPUT: In 8.5 out 2.4. Net positive 6 liters. GENERAL: Patient is intubated and sedated but responsive and following commands appropriately. HEENT: Normocephalic, atraumatic. There is scabbed and healing lip laceration. His neck is supple and trachea is midline. There is no palpable cervical adenopathy. CARDIOVASCULAR: Regular rate and rhythm. S1, S2. No murmurs appreciated. LUNGS: Coarse rhonchus breath sounds on the left with occasional crackles and some coarse ventilator breath sounds on the right. ABDOMEN: Soft, nontender and nondistended. EXTREMITIES: There is no lower extremity edema. There is some hyperpigmentation and ecchymosis in his knees bilaterally with some scabbing wounds. There is also some hyperpigmentation and ecchymosis in his elbows. The fluctuance in the knees appears to be improving. LABS: WBC 7.5, hemoglobin 11.1, platelets 183, sodium 144, potassium 3.1, chloride 114, bicarbonate 21, BUN 13, creatinine 0.87, glucose 95, troponin is trending down to 1.64, phosphorus 2.1, magnesium 1.8. IMAGING: Chest x-ray showed a trace right pleural effusion. The left base opacity and consolidation appears increased. There is some mild pulmonary vasculature congestion. The EG tube is in place and the OG tube is in place as well. MICROBIOLOGY: Sputum culture preliminary stain shows gram positive cocci. Final is pending. ASSESSMENT AND PLAN: Patient is an 83-year-old male with a history of hypertension, hyperlipidemia, hypothyroidism, BPH, GERD who was found to outdoors minimally responsive and was noted to have bottle of Benadryl next to him with the suspicion of ingestion and overdose, possible suicide attempt. Patient was hypothermic on presentation and lethargic and was intubated for airway protection. He was also noted to have some dried blood in his naris and mouth and upon intubation there was suctioning of coffee ground material from his ET tube and after placement of the OG tube there was copious amounts of dark black coffee ground material. Patient was rewarmed and then was noted to develop a fever. There was concern for aspiration pneumonia given his presentation and his chest x-ray today shows a worsening left lower lobe opacity. Neurology, patient had metabolic encephalopathy in the setting of possible Benadryl overdose and hypothermia. His CT head on admission did not show any acute intracranial pathology. His U-Tox was negative. Patient is currently sedated with propofol while intubated. We will wean down sedation and start Precedex to attempt to perform a weaning trial from the ventilator today. Cardiovascular, patient has a history of hypertension. He was hypotensive a few days ago but responded well with IV fluids and his blood pressures have now been stable. He is also status-post 1 dose of hydrocortisone 50 mg. Patient was noted to have some elevated cardiac enzymes likely in the setting of demand ischemia and rhabdomyolysis. His troponin has been trending down and his CPK has also been trending down. Will followup the results of his echo. Did not start any anticoagulation given his history of likely upper GI bleed. Will continue to monitor blood pressure and restart his antihypertensives as tolerated. Patient had elevated BNP and is significantly net positive and x-ray also shows some trace effusion now on the right and some possible effusion and consolidation on the left. We will give a dose of IV Lasix to facilitate possible weaning from the ventilator. Pulmonary, patient was intubated given his altered mental status. His CT chest showed atelectasis and mild bronchiectasis. There was concern for aspiration given his history and his chest x-ray now shows worsening left lower lobe opacity. Patient was also febrile likely with aspiration pneumonia. He was started on Unasyn. Will add vancomycin today given the sputum preliminary shows gram positive cocci and patient continues to be febrile. Will followup the final sputum culture results and deescalate depending on the results. Patient is on packed red blood cells. He has been weaned down to FiO2 of 21%. We will perform a weaning trial today and extubate the patient if possible. Continue with vent bundles while intubated and with ABG's and daily chest x-rays. Abdomen, patient had an OG tube placed after intubation which showed copious amount of coffee ground material possible with upper GI bleed. He does have a history of GERD. His OG tube output has significantly decreased. There was only minimal coffee ground material. He was on a PPI drip. We will transition to PPI twice a day. Continue OG tube to low intermittent suction. If patient is not able to be extubated today we will start tube feeds. Continue to trend his hemoglobin and hematocrit. Patient had a decrease in his hemoglobin initially in the setting of rewarming from hypothermia. His hemoglobin and hematocrit has remained stable now. Renal, patient has acute kidney injury with elevated CPK consistent with rhabdomyolysis. He was given aggressive IV fluid hydration and his CPK has been trending down and his creatinine has also improved. We will decreased normal saline to 100 mL an hour and continue with D5 for hypoglycemia. Patient also noted to have significant electrolyte derangements. We will repleate his electrolytes and followup repeat labs today. We will continue with Synthroid for his history of hypothyroidism. Deep venous thrombosis with SCD and TEDs. FULL CODE. Total critical care time spent not including any procedures approximately 55 minutes. MTDD
[2018-10-14] MEDS: PANTOPRAZOLE 40MG INJ (PROTONIX) (C9113) IV SCH (21:03)
[2018-10-14] MEDS: BLISTEX OINTMENT TOP SCH (21:04)
[2018-10-14] MEDS: NEUTRA-PHOS 1.25 GM PACKET PO SCH (21:04)
[2018-10-14] MEDS: ACETAMINOPHEN 325 MG/10.15 ML UDC GT PRN (21:04)
[2018-10-14 22:13] LABS: ALBUMIN 2.5 GM/DL (3.2-5.2); ALT/SGPT 42 U/L (12-78); BLOOD UREA NITROGEN 7 MG/DL (7-18); CARBON DIOXIDE LEVEL 27 MEQ/L (21-32); CHLORIDE LEVEL 112 MEQ/L (98-107); CPK CREATINE PHOSPHOKINASE 4327 U/L (39-308); CREATININE FOR GFR 0.79 MG/DL (0.70-1.30); GLOMERULAR FILTRATION RATE > 60.0 (>35); GLUCOSE, FASTING 115 MG/DL (70-100); POTASSIUM SERUM 3.4 MEQ/L (3.5-5.1); SODIUM LEVEL 144 MEQ/L (136-145); TOTAL PROTEIN 5.7 GM/DL (6.4-8.2)
[2018-10-15] VITALS (7 sets, daily range): BP systolic 98–143; BP diastolic 62–73
[2018-10-15] MEDS: KCL 10MEQ/100ML SWI (KRUN) 10 MEQ in APPROPRIATE DILUENT 1 EA IV SCH ×2
[2018-10-15] MEDS: KCL 20MEQ in NS 1000ML 1,000 ML IV SCH ×3 (01:52→19:30)
[2018-10-15 04:47] LABS: BASO % 0.3 % (0.0-1.0); EOS % 0.5 % (0.0-3.0); HEMATOCRIT 33.5 % (42.0-52.0); HEMOGLOBIN 11.4 g/dl (13.5-17.5); LYMPH # 0.9 10^3/uL (1.5-4.5); LYMPH % 12.3 % (24.0-44.0); MEAN CORPUSCULAR HEMOGLOBIN 33.2 pg (27.0-33.0); MEAN CORPUSCULAR VOLUME 97.7 fl (80.0-96.0); MONO # 0.7 10^3/uL (0.0-0.8); MONO % 9.2 % (0.0-5.0); NEUTROPHILS # 5.8 10^3/uL (1.8-7.7); NEUTROPHILS % 77.2 % (36.0-66.0); PLATELET COUNT, AUTOMATED 171 10^3/uL (150-450); RED BLOOD COUNT 3.43 10^6/uL (4.30-6.10); WHITE BLOOD COUNT 7.5 10^3/uL (4.0-10.0)
[2018-10-15] MEDS: VANCOMYCIN HCL 1,000 MG, VIAL MATE ADAPTER 1 EACH in D5W 250 ML IV SCH ×2 (05:07→16:34)
[2018-10-15 05:11] LABS: ALBUMIN 2.2 GM/DL (3.2-5.2); ALT/SGPT 37 U/L (12-78); BILIRUBIN,TOTAL 1.1 MG/DL (0.2-1.0); BLOOD UREA NITROGEN 6 MG/DL (7-18); CALCIUM LEVEL 7.1 MG/DL (8.8-10.2); CARBON DIOXIDE LEVEL 26 MEQ/L (21-32); CHLORIDE LEVEL 112 MEQ/L (98-107); CREATININE FOR GFR 0.73 MG/DL (0.70-1.30); GLOMERULAR FILTRATION RATE > 60.0 (>35); GLUCOSE, FASTING 95 MG/DL (70-100); MAGNESIUM LEVEL 2.1 MG/DL (1.8-2.4); PHOSPHORUS LEVEL 1.5 MG/DL (2.5-4.9); POTASSIUM SERUM 3.5 MEQ/L (3.5-5.1); SODIUM LEVEL 144 MEQ/L (136-145); TOTAL PROTEIN 5.4 GM/DL (6.4-8.2)
[2018-10-15] MEDS: LEVOTHYROXINE 112MCG TABLET (0.112MG) NG SCH (06:13)
[2018-10-15] MEDS: AMPICILLIN SOD/SULBACTAM SOD 3 GM in D5W MINI-BAG PLUS 100 ML IV SCH ×4 (06:13→23:09)
[2018-10-15 06:16] LABS: ABG BASE EXCESS 4.1 (-2.0-2.0); ABG HCO3 26.8 MEQ/L (22.0-26.0); ABG O2 SATURATION 98.3 % (95.0-99.0); ABG PARTIAL PRESSURE CO2 33.7 mmHg (35.0-45.0); ABG PARTIAL PRESSURE O2 104.8 mmHg (75.0-100.0); ABG STANDARD HCO3 28.1 MEQ/L (22.0-26.0); ABG TOTAL CO2 27.8 MEQ/L (23.0-31.0); ABG pH (ARTERIAL) 7.518 UNITS (7.350-7.450)
--- NOTE | 2018-10-15 08:03 | REP ---
Clinical: Intubation. Comparison: 10/14/2018. Findings: The patient is status post extubation. Cardiac silhouette is upper limits of normal and stable. Perihilar and bibasilar opacities with small pleural effusions similar to prior examination. No pneumothorax. Impression: Bibasilar pleuroparenchymal changes similar to prior examination. The patient has been extubated. Electronically Signed by Hiram Conrad MD 10/15/2018 07:53 A
[2018-10-15] MEDS: NEUTRA-PHOS 1.25 GM PACKET PO SCH ×3 (08:34→23:09)
[2018-10-15] MEDS: HEPARIN SOD (PORCINE) 5000 UNITS/ML VIAL SQ SCH ×2 (08:34→20:50)
[2018-10-15] MEDS: BLISTEX OINTMENT TOP SCH ×3 (08:34→21:00)
[2018-10-15] MEDS: PANTOPRAZOLE 40MG INJ (PROTONIX) (C9113) IV SCH (08:34)
[2018-10-15] MEDS ORDERED: POTASSIUM PHOSPHATE INJ 18 MMOL in D5W 250 ML IV ONE (11:00)
--- NOTE | 2018-10-15 12:45 | CCN ---
DATE: 10/15/2018 CRITICAL CARE PROGRESS NOTE: Patient was seen and examined today. He was extubated yesterday and has been doing well on just nasal cannula oxygen. This morning patient continues to have a hoarse voice, although it is improving. He reports feeling better today. He denies any chest pains. No shortness of breath. He does report a cough, although it is nonproductive currently. He has no abdominal pain. No nausea or vomiting. Overnight, patient had a low-grade fever with a maximum temperature (Tmax) of 100.5. PHYSICAL EXAMINATION: Maximum temperature (Tmax) 100.5. Current temperature (T-current) 99.0. Pulse 64, respirations 18, blood pressure 132/72, oxygen saturation 97% on 2 liters nasal cannula. In 3.2 liters, out 6.8, net negative 3.5 liters. General: Patient is awake and alert, is conversant appropriately and following commands. HEENT: Normocephalic, atraumatic. There is a scabbed and healing lip laceration. His neck is supple. Trachea is midline. There is no palpable cervical adenopathy. Cardiovascular: Regular rate and rhythm. S1 and S2. No murmurs appreciated. Lungs: Coarse rhonchus breath sounds on the left with occasional crackles and some rare crackles on the right base. Abdomen is soft, nontender and nondistended. Extremities: There is no lower extremity edema. There is some ecchymosis and scabbing in his knees bilaterally with some tenderness to palpation. The swelling in the knees appears to have resolved. He also has some ecchymosis in his elbows bilaterally. LABS: WBC 7.5, hemoglobin 11.4, platelets 171. Sodium 144, potassium 3.5, chloride 112, bicarbonate 26, BUN 6, creatinine 0.73, glucose 95. Calcium 7.1, phosphorus 1.5, magnesium 2.1, AST 83, ALT 37. His sputum culture shows Staphylococcus aureus, which is MSSA. Chest x-ray shows the trace effusion on the right is improved. The left base effusion is improved. There does continue to be some atelectasis/consolidation at that left base. His echo showed a normal EF with grade 2 diastolic dysfunction. There is mild aortic insufficiency and mild mitral valve insufficiency. There is evidence of an elevated CVP and some mild pulmonary hypertension. ASSESSMENT AND PLAN: Patient is an 83-year-old male with a history of hypertension, hyperlipidemia, hypothyroidism, BPH, gastroesophageal reflux disease (GERD). Patient was found by [facility] ([facility]) outdoors, was minimally responsive and had been noted to have bottle of Benadryl next to him with the suspicion of ingestion and overdose, possible suicide attempt. In the emergency department (ED), patient was hypothermic and lethargic and was intubated for airway protection. He is also noted after intubation to have suctioning of coffee ground material from his endotracheal tube (ET) tube and after placement of the orogastric (OG) tube there was copious amounts of dark black coffee ground liquid material from his OG tube. Patient was rewarmed and then was noted to develop a fever, and there was concern for aspiration pneumonia given his presentation and an increased left lower lobe opacity. The patient was started on antibiotics. Yesterday, he was successfully extubated. Neurological: Patient with metabolic encephalopathy in the setting of possible Benadryl overdose and hypothermia. His CT head on admission did not show any acute intracranial pathology. His U-Tox was negative. His aspirin and salicylates were negative. Patient is awake and alert currently, and conversant appropriately. After some questioning about the events leading up to this presentation, patient does not remember getting out of his car and sitting down outside. He does remember taking some sleeping pills but he denied to me that it was an attempt to harm himself or to end his life. However, when nurses had questioned him earlier, he seemed to indicate that he had been attempting a suicide attempt. Patient is also unclear about how ended up in [place]. He denied that there were any other people involved with these events. Patient is on a 1:1 observation for possible suicide attempt. Will need a psychiatric evaluation. Cardiovascular: Patient has a history of hypertension. He was hypotensive a requiring IV fluid boluses and a dose of hydrocortisone but his blood pressures have improved. Patient was also noted to have Troponemia likely with demand ischemia in the setting of his hypothermia and rhabdomyolysis. His troponins have trended down and his creatinine phosphokinase (CPK) has been continuing to trend down. His echo showed normal EF with some diastolic dysfunction. There was evidence of increased central venous pressure (CVP) and some mild pulmonary hypertension. No significant valvular pathology. He was given a dose of Lasix given his elevated brain natriuretic peptide (BNP) and to facilitate extubation yesterday. He has had significant diuresis and his chest x-ray shows some improvement in the trace effusions noted previously. Will continue to monitor intakes and outputs. His IV fluids have been decreased. Pulmonary: Patient was intubated given his altered mental status. His CT chest showed atelectasis and some bronchiectasis. Patient had also developed a fever and he had increasing opacity in the left lower lobe likely with aspiration pneumonia. He was started on Unasyn and then with vancomycin given his preliminary sputum showed gram positive cocci. Final sputum culture results show Staphylococcus aureus with MSSA. Therefore, would recommend de-escalating antibiotics. He does continue to have some low grade fevers. Although, his white count has significantly improved. Patient was extubated yesterday and has been doing well on nasal cannula. Will continue to wean down nasal cannula supplementation as tolerated. Abdomen: Patient on admission had been noted to have some coffee ground material from his OG tube with a possible upper gastrointestinal (GI) bleed. He does have a history of GERD, was started on a proton pump inhibitor (PPI) drip and transitioned to PPI twice a day. He was able to tolerate clear liquids yesterday and his hemoglobin has been stable. Will advance his diet as tolerated. Renal: Patient had acute kidney injury (TOMAS) with elevated creatinine phosphokinase (CPK) consistent with rhabdomyolysis. He was given aggressive IV fluid hydration and his CPK and creatinine have been improving. We will continue to decrease his IV fluids as the patient's diet is being advanced. He did have some hypoglycemia and is on D5 currently. Will discontinue once the patient is able tolerate oral. Patient continues to have some electrolyte derangements. Will replete as needed and followup repeat. Continue with Synthroid for his hypothyroidism. Deep venous thrombosis (DVT) prophylaxis: heparin Patient is FULL CODE. Total critical care time spent not including any procedures approximately 45 minutes. MTDD
--- NOTE | 2018-10-15 13:03 | IPN ---
DATE: 10/15/2018 Mr. Quesada was transferred to the hospitalist service today. The case was reviewed with Dr. Jenkins who was his sterile process tech. The patient was admitted with hypothermia after presumed intentional overdose with Benadryl. The circumstances have been previously documented. At this point, his medical problems include metabolic encephalopathy in the setting of possible Benadryl overdose and hypothermia, hypotension that responded to IV fluids initially then required IV Lasix for volume overload, rhabdomyolysis with a CPK that is trending down, probable aspiration pneumonia for which he is currently on IV antibiotics, possible upper GI bleed or at least stress ulceration with coffee ground material noted on intubation, and per his has a history of unspecified gastric problems. Per his , he is more alert today although she is concerned about edema of his hands. PHYSICAL EXAMINATION: Afebrile. 133/72. He awakens and responds to question. Neck is supple. Lungs decreased breath sounds, few rhonchi. Heart regular rhythm. Abdomen soft, nontender. No peripheral edema. Edema of the hands noted. Labs: White count 7.5, hemoglobin 11.4, platelets 171, sodium 144, potassium 3.5, BUN 6, creatinine 0.7, glucose 93, CPK is down to 2500. Blood sugars have been normal. TSH on admission was normal. IMPRESSION: 1. Intentional Benadryl overdose. Will get psychiatry involved once the patient is out of ICU. The patient should be considered for inpatient mental health hospitalization. Will defer to psychiatry for final opinion on this. 2. Probably aspiration pneumonia, on Unasyn day 3, vancomycin day 2. 3. Hypothyroidism. TSH is therapeutic on current levothyroxine 112 mcg daily. 4. Presumed upper GI bleed on IV Protonix. Will change this to p.o. Protonix. There is no sign of active bleeding at this point. Hemoglobin has been stable.
--- NOTE | 2018-10-15 16:22 | PHACANCOPD ---
PHARMACY VANCOMYCIN DOSING Pt Demographics Demographics Patient Age:83 , Weight:63.600 , Gender: male Adjusted Body Weight Date: 10/14/18, Adjusted Body Weight: Kg Events Past 24 Hours Events Past 24 Hours: YES: Change in CrCl; NO: Dialysis, Diuretic Therapy, Fever, Elevation in WBC, Pending Diagnostics, Pending Procedures, Other Vancomycin Vancomycin indication: pneumonia Vancomycin Target Ranges: 15-20 mcg/ml Vancomycin Load Y/N: No Load Dose Date Time Vancomycin Load Dose: Date: Time: Vancomycin Dose Date: 10/14/18. Current Vancomycin Dose: [1g IV q12h @16] Intermittent Dosing?: No Labs Labs Vital Signs Label Value Date Time Patient Temperature 99.0 degrees F 10/15/18 0800 Temperature Source Temporal 10/15/18 0800 Patient Temperature 99.7 degrees F 10/15/18 0400 Temperature Source Temporal 10/15/18 0400 Patient Temperature 100.3 degrees F 10/15/18 0000 Temperature Source Urinary Catheter 10/15/18 0000 Patient Temperature 100.5 degrees F 10/14/18 2000 Temperature Source Urinary Catheter 10/14/181999 Item Value Date Time White Blood Count 7.5 10^3/uL 10/15/18 0431 White Blood Count 8.0 10^3/uL 10/13/18 1534 White Blood Count 7.5 10^3/uL 10/14/18 0458 Creatinine 0.83 MG/DL 10/14/18 1533 Creatinine 0.79 MG/DL 10/14/18 2120 Creatinine 0.73 MG/DL 10/15/18 0431 Vancomycin Level Trough 7.6 UG/ML L 10/15/18 1451 Micro Microbiology 10/13/18 Blood Culture - Preliminary, Resulted No Growth after 48 hours. All Specime... 10/13/18 Gram Stain - Final, Complete 10/13/18 Sputum Culture - Final, Complete Staphylococcus Aureus Creatinine Clearance Date:10/14/18. Creatinine Clearance: [~38 ml/min]. Pending Labs Vanco trough scheduled 10/15 @15:00 Assessment and Plan Maintaining Current Dose?: Yes Reason for dose change: Trough too low Pharmacist Note Pharmacist Note 10/15: Trough after 2 doses resulted at 7.6mcg/ml. I have scheduled the pt an additional 500mg for 1700 to help load her. She is not yet at steady state. Her labs grew MSSA, so tomorrow I would recommend trying to streamline abx. We will continue to monitor and adjust dose as needed. Date: 10/14/18. Pharmacist note: pt has been started on Vancomycin 1g IV q12h for pneumonia. Sputum gram stain showed g+ cocci in ch and cl. He has been continued on Unasyn since yesterday. Pt has not been to our facility before. SCr has been improving since admission. I have a trough scheduled for tomorrow afternoon before the 3rd dose. We will continue to monitor and make adjustments as necessary. ZENIA BRONSON PHARMAC[facility] Oct 15, 2018 16:22
[2018-10-15] MEDS ORDERED: VANCOMYCIN HCL 500 MG in D5W MINI-BAG PLUS 100 ML IV ONE (17:00)
[2018-10-15] MEDS: PANTOPRAZOLE 40MG TAB (PROTONIX) PO SCH (20:50)
[2018-10-16] MEDS: VANCOMYCIN HCL 1,000 MG, VIAL MATE ADAPTER 1 EACH in D5W 250 ML IV SCH ×2 (04:00→16:44)
[2018-10-16] MEDS: LEVOTHYROXINE 112MCG TABLET (0.112MG) NG SCH (05:14)
[2018-10-16] MEDS: AMPICILLIN SOD/SULBACTAM SOD 3 GM in D5W MINI-BAG PLUS 100 ML IV SCH ×2 (05:14→11:46)
[2018-10-16] MEDS: KCL 20MEQ in NS 1000ML 1,000 ML IV SCH ×2 (05:30→15:30)
[2018-10-16 06:00] VITALS: BP 131/66
[2018-10-16 06:07] LABS: BASO % 0.3 % (0.0-1.0); EOS # 0.1 10^3/uL (0.0-0.50); EOS % 1.2 % (0.0-3.0); HEMATOCRIT 31.1 % (42.0-52.0); HEMOGLOBIN 10.4 g/dl (13.5-17.5); LYMPH % 16.4 % (24.0-44.0); MEAN CORPUSCULAR HEMOGLOBIN 32.9 pg (27.0-33.0); MEAN CORPUSCULAR HGB CONC 33.4 g/dl (32.0-36.5); MEAN CORPUSCULAR VOLUME 98.4 fl (80.0-96.0); MONO # 0.7 10^3/uL (0.0-0.8); MONO % 11.4 % (0.0-5.0); NEUTROPHILS # 4.2 10^3/uL (1.8-7.7); NEUTROPHILS % 70.4 % (36.0-66.0); PLATELET COUNT, AUTOMATED 193 10^3/uL (150-450); RED BLOOD COUNT 3.16 10^6/uL (4.30-6.10); WHITE BLOOD COUNT 5.9 10^3/uL (4.0-10.0)
[2018-10-16 06:39] LABS: ALT/SGPT 44 U/L (12-78); BILIRUBIN,TOTAL 0.9 MG/DL (0.2-1.0); BLOOD UREA NITROGEN 7 MG/DL (7-18); CALCIUM LEVEL 7.4 MG/DL (8.8-10.2); CARBON DIOXIDE LEVEL 27 MEQ/L (21-32); CHLORIDE LEVEL 110 MEQ/L (98-107); CREATININE FOR GFR 0.67 MG/DL (0.70-1.30); GLOMERULAR FILTRATION RATE > 60.0 (>35); GLUCOSE, FASTING 103 MG/DL (70-100); PHOSPHORUS LEVEL 2.3 MG/DL (2.5-4.9); POTASSIUM SERUM 3.4 MEQ/L (3.5-5.1); SODIUM LEVEL 145 MEQ/L (136-145); TOTAL PROTEIN 5.2 GM/DL (6.4-8.2)
[2018-10-16] MEDS: NEUTRA-PHOS 1.25 GM PACKET PO SCH ×3 (11:45→20:02)
[2018-10-16] MEDS: PANTOPRAZOLE 40MG TAB (PROTONIX) PO SCH ×2 (11:45→20:03)
[2018-10-16] MEDS: HEPARIN SOD (PORCINE) 5000 UNITS/ML VIAL SQ SCH ×2 (11:46→20:03)
[2018-10-16] MEDS: BLISTEX OINTMENT TOP SCH ×3 (11:46→20:03)
--- NOTE | 2018-10-16 13:57 | REP ---
Clinical: Patellar pain. Technique: AP, lateral, bilateral oblique and sunrise views of the left knee. Findings: Generalized age-related degenerative changes are noted to the tibiofemoral joint space. Mild cortical irregularity to the femoral condyle is identified along with very subtle spurring at the medial tibial spine. Lateral and sunrise views demonstrate slight increase sclerosis and fraying along the anterior patellar margin along with patellofemoral joint space narrowing consistent with patellar tendinopathy. No acute fracture dislocation. No effusion. Impression: Mild patellar tendinopathy. Electronically Signed by Hiram Conrad MD 10/16/2018 01:49 P
[2018-10-16 14:00] VITALS: BP 139/70
[2018-10-16] MEDS: CEPACOL LOZENGE PO PRN ×2 (17:06→20:02)
[2018-10-16 22:00] VITALS: BP 134/70
[2018-10-17] MEDS: KCL 20MEQ in NS 1000ML 1,000 ML IV SCH ×3 (00:29→23:15)
--- NOTE | 2018-10-17 00:34 | IPN ---
DATE: 10/16/2018 Mr. Quesada is seen on [facility]. He says has a lot of cough and congestion. He still feels is very full in his chest and has trouble bringing up his secretions. He is still quite hoarse from the intubation. No cardiac symptoms. No chest pain, not terribly short of breath. Expressing no suicidal thoughts or intentions. PHYSICAL EXAM: 131/66, pulse is 60, afebrile and 96% oxygen saturation on room air. General appearance: He is resting comfortably. No distress. Lungs: Bibasilar rhonchi. A lot of upper airway transmitted noises from airway congestion. Heart: Regular rhythm. Abdomen: Soft. Nontender. Left knee is tender to palpate over the patella where there is an abrasion. No peripheral edema. LABS: CBC is unremarkable and unchanged. Electrolytes: Potassium 3.4, BUN and creatinine 7/0.6. Blood sugar 103. IMPRESSION: 1. Aspiration pneumonia. We have isolated methicillin-resistant staph from his sputum, and he is currently on vancomycin and Zosyn. We will discontinue the Zosyn. 2. Intentional overdose with Benadryl. I have not had psychiatry see him yet. He is still fairly ill from the pneumonia. Probably will not have psychiatry see him until Friday. 3. Hypothyroidism. Thyroid-stimulating hormone (TSH) normal on current dose of levothyroxine. 4. Upper gastrointestinal (GI) bleed. No recurrence. He is on Protonix. 5. Stress ischemia with elevated troponins. No sign of ongoing cardiac symptoms. 6. Rhabdomyolysis. This has resolved. 7. Acute kidney injury. This resolved with hydration. His daughter is here from [place]. Spent a lot of time with the daughter and patient's , with his permission, reviewing the case and answering questions concerning his various current medical issues.
[2018-10-17] MEDS: VANCOMYCIN HCL 1,000 MG, VIAL MATE ADAPTER 1 EACH in D5W 250 ML IV SCH (03:35)
[2018-10-17] MEDS: CEPACOL LOZENGE PO PRN ×3 (03:40→20:33)
[2018-10-17] MEDS: LEVOTHYROXINE 112MCG TABLET (0.112MG) NG SCH (05:39)
[2018-10-17 06:00] VITALS: BP 133/70
[2018-10-17 06:13] LABS: BASO % 0.4 % (0.0-1.0); EOS # 0.2 10^3/uL (0.0-0.50); EOS % 3.2 % (0.0-3.0); HEMATOCRIT 29.9 % (42.0-52.0); HEMOGLOBIN 10.3 g/dl (13.5-17.5); LYMPH # 0.7 10^3/uL (1.5-4.5); LYMPH % 12.5 % (24.0-44.0); MEAN CORPUSCULAR HEMOGLOBIN 32.8 pg (27.0-33.0); MEAN CORPUSCULAR HGB CONC 34.4 g/dl (32.0-36.5); MEAN CORPUSCULAR VOLUME 95.2 fl (80.0-96.0); MONO # 0.7 10^3/uL (0.0-0.8); MONO % 13.3 % (0.0-5.0); NEUTROPHILS # 3.9 10^3/uL (1.8-7.7); NEUTROPHILS % 69.9 % (36.0-66.0); PLATELET COUNT, AUTOMATED 215 10^3/uL (150-450); RED BLOOD COUNT 3.14 10^6/uL (4.30-6.10); WHITE BLOOD COUNT 5.6 10^3/uL (4.0-10.0)
[2018-10-17 06:39] LABS: ALBUMIN 2.1 GM/DL (3.2-5.2); ALT/SGPT 55 U/L (12-78); BILIRUBIN,TOTAL 0.8 MG/DL (0.2-1.0); BLOOD UREA NITROGEN 7 MG/DL (7-18); CALCIUM LEVEL 7.7 MG/DL (8.8-10.2); CARBON DIOXIDE LEVEL 29 MEQ/L (21-32); CHLORIDE LEVEL 105 MEQ/L (98-107); CREATININE FOR GFR 0.63 MG/DL (0.70-1.30); GLOMERULAR FILTRATION RATE > 60.0 (>35); GLUCOSE, FASTING 101 MG/DL (70-100); MAGNESIUM LEVEL 1.9 MG/DL (1.8-2.4); PHOSPHORUS LEVEL 3.1 MG/DL (2.5-4.9); POTASSIUM SERUM 3.8 MEQ/L (3.5-5.1); SODIUM LEVEL 139 MEQ/L (136-145); TOTAL PROTEIN 5.4 GM/DL (6.4-8.2)
[2018-10-17] MEDS: HEPARIN SOD (PORCINE) 5000 UNITS/ML VIAL SQ SCH ×2 (10:19→20:34)
[2018-10-17] MEDS: NEUTRA-PHOS 1.25 GM PACKET PO SCH ×3 (10:19→20:34)
[2018-10-17] MEDS: PANTOPRAZOLE 40MG TAB (PROTONIX) PO SCH ×2 (10:20→20:34)
[2018-10-17] MEDS: BLISTEX OINTMENT TOP SCH ×3 (10:20→20:34)
--- NOTE | 2018-10-17 13:59 | IPN ---
DATE: 10/17/2018 Mr. Quesada is about the same. He has a lot of chest congestion and he has staphylococcus aureus aspiration pneumonia. He is on Vancomycin for this. PHYSICAL EXAMINATION: 99.1, maximum temperature was 99.2, 133/70. GENERAL APPEARANCE: Elderly, resting in bed. Frequent cough. LUNGS: Scattered rhonchi but better than yesterday. HEART: Regular rate and rhythm. ABDOMEN: Soft and nontender. Left is a little tender to palpation. No edema. LABS: CBC is stable. Electrolytes were unremarkable. Blood sugars are normal. IMPRESSION: 1. Aspiration pneumonia with methicillin sensitive staphylococcus in his sputum. Continue vancomycin. We discontinued his Zosyn yesterday. 2. Potential overdose on Benadryl. Once he is medically stable we will get psychiatry to see him, probably on 10/19/2018. 3. Hypothyroidism. TSH is normal. 4. Upper GI bleed, no recurrence on Protonix. 5. Stress ischemia with elevated tropin. No evidence of ongoing cardiac symptoms. 6. Acute kidney injury resolved with hydration . I expect his hospitalization to extend in to the early next week and then evaluation by psychiatry for safety after the overdose.
[2018-10-17 14:00] VITALS: BP_SYST 136; BP_SYST 154; BP_DIAS 68; BP_DIAS 77
[2018-10-17] MEDS: ceFAZolin SOD 1 GM in D5W MINI-BAG PLUS 50 ML IV SCH ×2 (16:25→23:12)
[2018-10-17 22:00] VITALS: BP 144/70
[2018-10-18] MEDS: LEVOTHYROXINE 112MCG TABLET (0.112MG) NG SCH (05:16)
[2018-10-18 05:59] LABS: BASO % 0.4 % (0.0-1.0); EOS # 0.2 10^3/uL (0.0-0.50); EOS % 3.9 % (0.0-3.0); HEMATOCRIT 30.2 % (42.0-52.0); HEMOGLOBIN 10.3 g/dl (13.5-17.5); LYMPH # 0.9 10^3/uL (1.5-4.5); LYMPH % 17.2 % (24.0-44.0); MEAN CORPUSCULAR HEMOGLOBIN 32.6 pg (27.0-33.0); MEAN CORPUSCULAR HGB CONC 34.1 g/dl (32.0-36.5); MEAN CORPUSCULAR VOLUME 95.6 fl (80.0-96.0); MONO # 0.7 10^3/uL (0.0-0.8); MONO % 13.9 % (0.0-5.0); NEUTROPHILS # 3.3 10^3/uL (1.8-7.7); NEUTROPHILS % 63.8 % (36.0-66.0); PLATELET COUNT, AUTOMATED 239 10^3/uL (150-450); RED BLOOD COUNT 3.16 10^6/uL (4.30-6.10); WHITE BLOOD COUNT 5.2 10^3/uL (4.0-10.0)
[2018-10-18 06:00] VITALS: BP 125/65
[2018-10-18 06:20] LABS: ALT/SGPT 58 U/L (12-78); BILIRUBIN,TOTAL 0.7 MG/DL (0.2-1.0); BLOOD UREA NITROGEN 9 MG/DL (7-18); CALCIUM LEVEL 7.8 MG/DL (8.8-10.2); CARBON DIOXIDE LEVEL 30 MEQ/L (21-32); CHLORIDE LEVEL 106 MEQ/L (98-107); CREATININE FOR GFR 0.64 MG/DL (0.70-1.30); GLOMERULAR FILTRATION RATE > 60.0 (>35); GLUCOSE, FASTING 94 MG/DL (70-100); MAGNESIUM LEVEL 1.9 MG/DL (1.8-2.4); POTASSIUM SERUM 3.8 MEQ/L (3.5-5.1); SODIUM LEVEL 141 MEQ/L (136-145); TOTAL PROTEIN 5.3 GM/DL (6.4-8.2)
[2018-10-18] MEDS: ceFAZolin SOD 1 GM in D5W MINI-BAG PLUS 50 ML IV SCH ×3 (08:22→23:29)
[2018-10-18] MEDS: HEPARIN SOD (PORCINE) 5000 UNITS/ML VIAL SQ SCH ×2 (08:22→20:43)
[2018-10-18] MEDS: NEUTRA-PHOS 1.25 GM PACKET PO SCH ×2 (08:22→16:10)
[2018-10-18] MEDS: PANTOPRAZOLE 40MG TAB (PROTONIX) PO SCH ×2 (08:22→20:42)
[2018-10-18] MEDS: BLISTEX OINTMENT TOP SCH ×3 (08:23→20:43)
[2018-10-18] MEDS: KCL 20MEQ in NS 1000ML 1,000 ML IV SCH ×2 (08:45→17:16)
--- NOTE | 2018-10-18 11:03 | IPNPDOC ---
Date Seen The patient was seen on 10/18/18. Progress Note SUBJECTIVE: patient seen and examined at bedside , in no apparent distress T max overnight 99.1, on day of 2 ancef for MSSA pneumonia, had 3 days of vancomycin . complains of some sore throat with swallowing, tolerating diet well, no other acute complaints OBJECTIVE PHYSICAL EXAMINATION: VITAL SIGNS: Please see below. GENERAL: well nourished, in no acute distress HEENT: EOMI, normocephalic CARDIOVASCULAR: regular, rate and rhythm, normal s1 and s2, no MGR RESPIRATORY: crackles LLL, no wheezing ABDOMINAL: soft, non tender, non distended, + BS EXTREMITIES: no edema, no calf tenderness NEUROLOGICAL: alert and oriented X 3. no focal deficits noted PSYCHOLOGICAL: mood appears appropriate, affect flat. LABORATORY DATA, IMAGING STUDIES, MICROBIOLOGY: Please see below. Echocardiogram: . DVT prophylaxis ordered?: SCD ASSESSMENT AND PLAN: This is a -year-old [RACE] [GENDER] with . PROBLEMS: 1. Toxic metabolic encephalopathy with impending acute Hypoxic respiratory failure 2/2 substance induced : s/p mechanial ventilation, sucessfully extubated and rewarmed. improved, oxygen NC as needed 2. Hypothermia/ Rhabdomyolysis w/ acute renal failure: improved wit fluid hydration and rewarming, continue to trend CPK daily 3. Suicidal ideation: remains on 1:1. psychiatry consulted 4. BPH: continue tamsulosin 5. HTN/ HPL: Nifedipine had been d/c by patient prior to hospitalization. BP remains stable. will hold off on restarting lipitor, LFT continues to trend down, will restart statin once LFT normalized 6. MSSA pneumonia: on Ancef day 2, s/p 3 days of vanco, will continue antbx to complete 7 day course. see problem 1 7. Coffee ground emesis: GI bleed: Hb remains stable, remains on PPI BID. pt has hx of GERD DISPOSITION: will get PT eval. psychiatry consult: disposition to follow after recommendations VS, I&O, 24H, Fishbone Vital Signs/I&O Vital Signs Date Time Temp Pulse Resp B/P (MAP) Pulse Ox O2 Delivery O2 Flow Rate FiO2 10/18/18 06:00 98.2 56 18 125/65 (85) 97 Nasal Cannula 2.0 10/14/18 15:00 35 I&O- Last 24 Hours up to 6 AM 10/18/18 06:00 Intake Total 3184 ml Output Total 4100 ml Balance -916 ml Laboratory Data 24H LABS Laboratory Tests 2 10/17/18 11:25: Bedside Glucose (Misc Panel) 109 10/17/18 15:08: Vancomycin Level Trough 10.1 10/17/18 18:35: Bedside Glucose (Misc Panel) 141H 10/18/18 00:02: Bedside Glucose (Misc Panel) 103 10/18/18 05:39: Immature Granulocyte % (Auto) 0.8, White Blood Count 5.2, Red Blood Count 3.16L, Hemoglobin 10.3L, Hematocrit 30.2L, Mean Corpuscular Volume 95.6, Mean Corpuscular Hemoglobin 32.6, Mean Corpuscular Hemoglobin Concent 34.1, Red Cell Distribution Width 11.9, Platelet Count 239, Neutrophils (%) (Auto) 63.8, Lymphocytes (%) (Auto) 17.2L, Monocytes (%) (Auto) 13.9H, Eosinophils (%) (Auto) 3.9H, Basophils (%) (Auto) 0.4, Neutrophils # (Auto) 3.3, Lymphocytes # (Auto) 0.9L, Monocytes # (Auto) 0.7, Eosinophils # (Auto) 0.2, Basophils # (Auto) 0.0, Nucleated Red Blood Cells % (auto) 0.0, Anion Gap 5L, Glomerular Filtration Rate > 60.0, Blood Urea Nitrogen 9, Creatinine 0.64L, Sodium Level 141, Potassium Level 3.8, Chloride Level 106, Carbon Dioxide Level 30, Calcium Level 7.8L, Phosphorus Level 3.0, Aspartate Amino Transf (AST/SGOT) 57H, Alanine Aminotransferase (ALT/SGPT) 58, Alkaline Phosphatase 64, Total Bilirubin 0.7, Total Protein 5.3L, Albumin 2.0L, Magnesium Level 1.9, Albumin/Globulin Ratio 0.61L 10/18/18 05:48: Bedside Glucose (Misc Panel) 103 CBC/BMP Laboratory Tests 10/18/18 05:39 Red Blood Count 3.16 L, Mean Corpuscular Volume 95.6, Mean Corpuscular Hemoglobin 32.6, Mean Corpuscular Hemoglobin Concent 34.1, Red Cell Distribution Width 11.9, Neutrophils (%) (Auto) 63.8, Lymphocytes (%) (Auto) 17.2 L, Monocytes (%) (Auto) 13.9 H, Eosinophils (%) (Auto) 3.9 H, Basophils (%) (Auto) 0.4, Neutrophils # (Auto) 3.3, Lymphocytes # (Auto) 0.9 L, Monocytes # (Auto) 0.7, Eosinophils # (Auto) 0.2, Basophils # (Auto) 0.0, Calcium Level 7.8 L, Phosphorus Level 3.0, Aspartate Amino Transf (AST/SGOT) 57 H, Alanine Aminotransferase (ALT/SGPT) 58, Alkaline Phosphatase 64, Total Bilirubin 0.7, Total Protein 5.3 L, Albumin 2.0 L Microbiology Microbiology 10/13/18 Blood Culture - Preliminary, Resulted No Growth after 72 hours. All specime... 10/13/18 Gram Stain - Final, Complete 10/13/18 Sputum Culture - Final, Complete Staphylococcus Aureus FRIDAY,DIETER BALDERRAMA Oct 18, 2018 11:03
[2018-10-18 14:00] VITALS: BP 132/70
[2018-10-18] MEDS: VENLAFAXINE **XR** 37.5 MG CAPSULE PO SCH (16:10)
[2018-10-18] MEDS: CEPACOL LOZENGE PO PRN (20:42)
[2018-10-18] MEDS: TAMSULOSIN 0.4 MG CAP PO SCH (20:44)
[2018-10-19] MEDS: CEPACOL LOZENGE PO PRN (03:18)
[2018-10-19] MEDS: LEVOTHYROXINE 112MCG TABLET (0.112MG) NG SCH (05:35)
[2018-10-19] MEDS: KCL 20MEQ in NS 1000ML 1,000 ML IV SCH (05:35)
[2018-10-19 05:58] LABS: HEMATOCRIT 31.3 % (42.0-52.0); HEMOGLOBIN 10.7 g/dl (13.5-17.5); MEAN CORPUSCULAR HEMOGLOBIN 32.4 pg (27.0-33.0); MEAN CORPUSCULAR HGB CONC 34.2 g/dl (32.0-36.5); MEAN CORPUSCULAR VOLUME 94.8 fl (80.0-96.0); PLATELET COUNT, AUTOMATED 287 10^3/uL (150-450); WHITE BLOOD COUNT 5.4 10^3/uL (4.0-10.0)
[2018-10-19 06:00] VITALS: BP 142/66
[2018-10-19 06:19] LABS: ALT/SGPT 61 U/L (12-78); BILIRUBIN,TOTAL 0.5 MG/DL (0.2-1.0); BLOOD UREA NITROGEN 11 MG/DL (7-18); CALCIUM LEVEL 7.8 MG/DL (8.8-10.2); CARBON DIOXIDE LEVEL 27 MEQ/L (21-32); CHLORIDE LEVEL 104 MEQ/L (98-107); CPK CREATINE PHOSPHOKINASE 361 U/L (39-308); CREATININE FOR GFR 0.56 MG/DL (0.70-1.30); GLOMERULAR FILTRATION RATE > 60.0 (>35); GLUCOSE, FASTING 95 MG/DL (70-100); PHOSPHORUS LEVEL 2.6 MG/DL (2.5-4.9); POTASSIUM SERUM 3.8 MEQ/L (3.5-5.1); SODIUM LEVEL 138 MEQ/L (136-145); TOTAL PROTEIN 5.3 GM/DL (6.4-8.2)
[2018-10-19] MEDS: ceFAZolin SOD 1 GM in D5W MINI-BAG PLUS 50 ML IV SCH (08:08)
[2018-10-19] MEDS: VENLAFAXINE **XR** 37.5 MG CAPSULE PO SCH (08:08)
[2018-10-19] MEDS: PANTOPRAZOLE 40MG TAB (PROTONIX) PO SCH ×2 (08:08→20:31)
[2018-10-19] MEDS: HEPARIN SOD (PORCINE) 5000 UNITS/ML VIAL SQ SCH ×2 (08:08→20:31)
[2018-10-19] MEDS: BLISTEX OINTMENT TOP SCH ×3 (08:09→20:34)
[2018-10-19] MEDS: ACETAMINOPHEN 325 MG/10.15 ML UDC GT PRN (12:21)
[2018-10-19 12:34] VITALS: BP 134/82
--- NOTE | 2018-10-19 13:30 | REP ---
Clinical: Chest pain. Pneumonia. Comparison: 10/15/2018. Findings: Mild bibasilar fibroatelectatic changes appear slightly improved from prior examination. Mediastinum and cardiac silhouette are within normal limits. No pneumothorax. Atherosclerotic changes to the aorta noted. Skeletal structures intact. Impression: Mild bibasilar fibroatelectatic changes minimally improved. Electronically Signed by Hiram Conrad MD 10/19/2018 01:21 P
[2018-10-19 14:00] VITALS: BP 144/69
[2018-10-19 14:15] LABS: APPEARANCE, URINE HAZY (CLEAR); BACTERIA, URINE AUTO 1+ (NEGATIVE); BILIRUBIN, URINE AUTO NEGATIVE (NEGATIVE); BLOOD, URINE BLOOD 1+ (NEGATIVE); COLOR, URINE YELLOW (YELLOW); GLUCOSE, URINE (UA) AUTO NEGATIVE (NEGATIVE); KETONE, URINE AUTO TRACE mg/dL (NEGATIVE); LEUKOCYTE ESTERASE, URINE AUTO 2+ (NEGATIVE); MUCUS, URINE SMALL (NEGATIVE); NITRITE, URINE AUTO NEGATIVE (NEGATIVE); PROTEIN, URINE AUTO NEGATIVE (NEGATIVE); RBC, URINE AUTO 8 /HPF (0-3); SPECIFIC GRAVITY URINE AUTO 1.013 (1.002-1.035); SQUAMOUS EPITHELIAL CELL UR AU 0 /HPF (0-6); UROBILINOGEN, URINE AUTO 0.2 mg/dL (0.0-2.0); WBC, URINE AUTO 159 /HPF (0-3)
--- NOTE | 2018-10-19 14:19 | NUR ---
Pt w/ moderate pharyngeal phase dysphagia. Recommend level 2 mechanically altered (NDD) solids and nectar thick liquids, no straws. Recommend MBSS to r/o silent aspiration. Addendum: 10/19/18 at 1420 by SANDY VALLEJO [facility] SP Amended: Links added.
--- NOTE | 2018-10-19 15:40 | IPNPDOC ---
Date Seen The patient was seen on 10/19/18. Progress Note SUBJECTIVE: patient seen and examined at bedside , Tmax 103.8 around noon, he has had 3 days of Vancomycin and day 3 of ancef for suspected aspiration PNA. pt is also more drowsy. He has had a an initial visit by psych . septic workup revealed grossly + UA. will start pt of cefepime, Ucx sent. he has completed enough of a course for his PNA OBJECTIVE PHYSICAL EXAMINATION: VITAL SIGNS: Please see below. GENERAL: well nourished, lethargic HEENT: EOMI, normocephalic CARDIOVASCULAR: regular, rate and rhythm, normal s1 and s2, no MGR RESPIRATORY: crackles LLL, no wheezing ABDOMINAL: soft, non tender, non distended, + BS EXTREMITIES: no edema, no calf tenderness NEUROLOGICAL: alert and oriented X 3. no focal deficits noted PSYCHOLOGICAL: lethargic LABORATORY DATA, IMAGING STUDIES, MICROBIOLOGY: Please see below. Echocardiogram: .1. Study is of acceptable technical quality. 2. Normal LV size with normal LV systolic function and grade 2 diastolic dysfunction. 3. Aortic sclerosis resulting in trivial stenosis and mild insufficiency. 4. Mild mitral insufficiency. 5. Mild tricuspid insufficiency. 6. Elevated central venous pressure and at least mild pulmonary hypertension. DVT prophylaxis ordered?: SCD ASSESSMENT AND PLAN: This is a -year-old [RACE] [GENDER] with . PROBLEMS: 1. Toxic metabolic encephalopathy with impending acute Hypoxic respiratory failure 2/2 substance induced : s/p mechanial ventilation, sucessfully extubated and rewarmed. improved, oxygen NC as needed 2. Hypothermia/ Rhabdomyolysis w/ acute renal failure: improved wit fluid hydration and rewarming, continue to trend CPK daily 3. Suicidal ideation: remains on 1:1. psychiatry on board 4. BPH: continue tamsulosin 5. HTN/ HPL: Nifedipine had been d/c by patient prior to hospitalization. BP remains stable. will hold off on restarting lipitor, LFT continues to trend down, will restart statin once LFT normalized 6. MSSA pneumonia: on Ancef day 2, s/p 3 days of vanco, will continue antbx to complete 7 day course. see problem 1 7. Coffee ground emesis: GI bleed: Hb remains stable, remains on PPI BID. pt has hx of GERD 8. CAUTI: + UA 10/19: started on Cefepime 10/19. ancef d/c DISPOSITION: will defer with acute change and UTI VS, I&O, 24H, Fishbone Vital Signs/I&O Vital Signs Date Time Temp Pulse Resp B/P (MAP) Pulse Ox O2 Delivery O2 Flow Rate FiO2 10/19/18 14:00 102.2 69 18 144/69 (94) 90 Nasal Cannula 2.0 10/14/18 15:00 35 I&O- Last 24 Hours up to 6 AM 10/19/18 06:00 Intake Total 2880 ml Output Total 2350 ml Balance 530 ml Laboratory Data 24H LABS Laboratory Tests 2 10/18/18 18:18: Bedside Glucose (Misc Panel) 138H 10/18/18 23:32: Bedside Glucose (Misc Panel) 104 10/19/18 05:33: Nucleated Red Blood Cells % (auto) 0.0, Anion Gap 7L, Glomerular Filtration Rate > 60.0, Blood Urea Nitrogen 11, Creatinine 0.56L, Sodium Level 138, Potassium Level 3.8, Chloride Level 104, Carbon Dioxide Level 27, Calcium Level 7.8L, Phosphorus Level 2.6, Aspartate Amino Transf (AST/SGOT) 55H, Alanine Aminotransferase (ALT/SGPT) 61, Total Creatine Kinase 361H, Alkaline Phosphatase 68, Total Bilirubin 0.5, Total Protein 5.3L, Albumin 2.0L, Albumin/Globulin Ratio 0.61L 10/19/18 11:55: Bedside Glucose (Misc Panel) 111H 10/19/18 13:50: Urine Appearance HAZY, Urine Color YELLOW, Urine pH 7.0, Urine Specific [place] 1.013, Urine Protein NEGATIVE, Urine Glucose (UA) NEGATIVE, Urine Ketones TRACEH, Urine Urobilinogen 0.2, Urine Bilirubin NEGATIVE, Urine Leukocyte Esterase 2+H, Urine Blood 1+H, Urine Nitrite NEGATIVE, Urine WBC (Auto) 159H, Urine RBC (Auto) 8H, Urine Hyaline Casts (Auto) 0, Urine Bacteria (Auto) 1+H, Urine Squamous Epithelial Cells 0, Urine Mucus (Auto) SMALL, Urine Sperm (Auto) CBC/BMP Laboratory Tests 10/19/18 05:33 Red Blood Count 3.30 L, Mean Corpuscular Volume 94.8, Mean Corpuscular Hemoglobin 32.4, Mean Corpuscular Hemoglobin Concent 34.2, Red Cell Distribution Width 11.9, Calcium Level 7.8 L, Phosphorus Level 2.6, Aspartate Amino Transf (AST/SGOT) 55 H, Alanine Aminotransferase (ALT/SGPT) 61, Total Creatine Kinase 361 H, Alkaline Phosphatase 68, Total Bilirubin 0.5, Total Protein 5.3 L, Albumin 2.0 L Microbiology Microbiology 10/19/18 Blood Culture, Received Pending 10/13/18 Blood Culture - Final, Complete NO GROWTH AFTER 5 DAYS 10/13/18 Gram Stain - Final, Complete 10/13/18 Sputum Culture - Final, Complete Staphylococcus Aureus FRIDAY,DIETER BALDERRAMA Oct 19, 2018 15:40
[2018-10-19] MEDS ORDERED: NS 1,000 ML IV SCH (15:45)
[2018-10-19] MEDS: ACETAMINOPHEN TAB 650MG DOSE (2X325MG) PO PRN (15:48)
--- NOTE | 2018-10-19 16:20 | IPNPDOC ---
Date Seen The patient was seen on 10/19/18. Progress Note PLEASE MAKE PATIENT NPO ON MIDNIGHT FOR BARIUM SWALLOW . LIKELY WILL BE COMPLETED ON Friday10/21/17. VS, I&O, 24H, Fishbone Vital Signs/I&O Vital Signs Date Time Temp Pulse Resp B/P (MAP) Pulse Ox O2 Delivery O2 Flow Rate FiO2 10/19/18 15:51 100.0 10/19/18 14:00 69 18 144/69 (94) 90 Nasal Cannula 2.0 10/14/18 15:00 35 I&O- Last 24 Hours up to 6 AM 10/19/18 06:00 Intake Total 2880 ml Output Total 2350 ml Balance 530 ml Laboratory Data 24H LABS Laboratory Tests 2 10/18/18 18:18: Bedside Glucose (Misc Panel) 138H 10/18/18 23:32: Bedside Glucose (Misc Panel) 104 10/19/18 05:33: Nucleated Red Blood Cells % (auto) 0.0, Anion Gap 7L, Glomerular Filtration Rate > 60.0, Blood Urea Nitrogen 11, Creatinine 0.56L, Sodium Level 138, Potassium Level 3.8, Chloride Level 104, Carbon Dioxide Level 27, Calcium Level 7.8L, Phosphorus Level 2.6, Aspartate Amino Transf (AST/SGOT) 55H, Alanine Aminotransferase (ALT/SGPT) 61, Total Creatine Kinase 361H, Alkaline Phosphatase 68, Total Bilirubin 0.5, Total Protein 5.3L, Albumin 2.0L, Albumin/Globulin Ratio 0.61L 10/19/18 11:55: Bedside Glucose (Misc Panel) 111H 10/19/18 13:50: Urine Appearance HAZY, Urine Color YELLOW, Urine pH 7.0, Urine Specific [place] 1.013, Urine Protein NEGATIVE, Urine Glucose (UA) NEGATIVE, Urine Ketones TRACEH, Urine Urobilinogen 0.2, Urine Bilirubin NEGATIVE, Urine Leukocyte Esterase 2+H, Urine Blood 1+H, Urine Nitrite NEGATIVE, Urine WBC (Auto) 159H, U rine RBC (Auto) 8H, Urine Hyaline Casts (Auto) 0, Urine Bacteria (Auto) 1+H, Urine Squamous Epithelial Cells 0, Urine Mucus (Auto) SMALL, Urine Sperm (Auto) CBC/BMP Laboratory Tests 10/19/18 05:33 Red Blood Count 3.30 L, Mean Corpuscular Volume 94.8, Mean Corpuscular Hemoglobi n 32.4, Mean Corpuscular Hemoglobin Concent 34.2, Red Cell Distribution Width 11.9, Calcium Level 7.8 L, Phosphorus Level 2.6, Aspartate Amino Transf (AST/SGOT) 55 H, Alanine Aminotransferase (ALT/SGPT) 61, Total Creatine Kinase 361 H, Alkaline Phosphatase 68, Total Bilirubin 0.5, Total Protein 5.3 L, Albumin 2.0 L Microbiology Microbiology 10/19/18 Blood Culture, Received Pending 10/13/18 Blood Culture - Final, Complete NO GROWTH AFTER 5 DAYS 10/13/18 Gram Stain - Final, Complete 10/13/18 Sputum Culture - Final, Complete Staphylococcus Aureus FRIDAY,DIETER BALDERRAMA Oct 19, 2018 16:20
--- NOTE | 2018-10-19 16:30 | MHCR ---
DATE OF CONSULTATION: 10/18/2018 IDENTIFYING DATA: He is an 83-year-old oriental male of [place] origin who was admitted for neurometabolic encephalopathy and hypothermia. He was recently intubated and currently extubated. Consult was called to evaluate for possible suicide attempt. The staff was consulted. Spoke to the doctor, and collaterals obtained from the patient's mother and daughter, who were present at his bedside. HISTORY OF PRESENT ILLNESS: Patient is currently lethargic. His voice is feeble and hoarse. Unable to speak clearly. Most of the history is obtained from his daughter, who spoke in [place] to him. Patient reports that he thought that life was not worth living after an argument with his , when she told him that she would like to live without him by herself. Her reports he was depressed minimally for the last 6 months, but it worsened after the argument and wanted to end his life by overdosing on sleeping pills. He ingested a bottle of Benadryl. He was sitting in the [facility] in front of his car with six packs of beer. Two of them were emptied, and a bottle of Benadryl, which had been emptied. When police spotted him, he was hypothermic and was responding very feebly. He was intubated and brought to the hospital. He was medically treated. He still seems to be lethargic, unable to speak clearly. He reports, "the medication will not help me," and he wants to speak to his . Denies any vegetative signs of depression. Reports his depression is about 2 in scale of 1-10, 10 being the highest. STRESSORS: Denies any stressors. PAST PSYCHIATRIC HISTORY: Denies any history of psychiatric hospitalization or having taken any psychotropic medications or having been in therapy. SUICIDAL HISTORY: Denies suicide attempt in the past. MEDICAL HISTORY: Denies medical issues. SOCIAL HISTORY: He migrated from [place] in 1960s. Recently got his citizenship. He lives with his . His and daughter are very supportive of him. His daughter works in social service director. MENTAL STATUS EXAMINATION: Patient is lying down in his bed in hospital clothing. Cooperative. Speaks very feebly with low tone. His answers are monosyllabic. Psychomotor activity is retarded. He makes poor eye contact. Speech is very soft and feeble, however, goal directed. Thought content: Denied any delusions. Denied any suicidal or homicidal ideas. Cognition: He is alert, oriented to time, place, person, and situation. Memory: Immediate, recent, and remote are good. Insight and judgment are limited. DIAGNOSES: Major depressive disorder, rule out adjustment disorder. PLAN: Patient is currently unable to answer clearly due to recent intubation. Still continues to have weakness because of his medical complications after overdosing on pills and hypothermia. Considering the severe attempt of suicide, he needs to be hospitalized after he is medically cleared or when he is medically stable. We need to do reassessment on him when he is medically stable. Please ask for another psychiatric consult. Place him on Effexor XR 37.5 mg once daily. Continue one-to-one observation.
[2018-10-19] MEDS: CEFEPIME HCL 1 GM in D5W MINI-BAG PLUS 50 ML IV SCH (17:05)
[2018-10-19 18:00] VITALS: BP 142/76
[2018-10-19] MEDS: TAMSULOSIN 0.4 MG CAP PO SCH (20:32)
[2018-10-19 22:00] VITALS: BP 155/68
[2018-10-20] MEDS: CEFEPIME HCL 1 GM in D5W MINI-BAG PLUS 50 ML IV SCH ×2 (04:11→17:51)
[2018-10-20] MEDS: LEVOTHYROXINE 112MCG TABLET (0.112MG) NG SCH (05:35)
[2018-10-20 06:00] VITALS: BP 141/69
[2018-10-20 06:43] LABS: CPK CREATINE PHOSPHOKINASE 291 U/L (39-308)
[2018-10-20 07:55] LABS: BASO % 0.1 % (0.0-1.0); EOS % 0.1 % (0.0-3.0); HEMATOCRIT 29.4 % (42.0-52.0); HEMOGLOBIN 10.3 g/dl (13.5-17.5); LYMPH # 0.6 10^3/uL (1.5-4.5); LYMPH % 3.9 % (24.0-44.0); MEAN CORPUSCULAR HEMOGLOBIN 33.3 pg (27.0-33.0); MEAN CORPUSCULAR VOLUME 95.1 fl (80.0-96.0); MONO # 0.6 10^3/uL (0.0-0.8); MONO % 4.2 % (0.0-5.0); NEUTROPHILS # 13.1 10^3/uL (1.8-7.7); NEUTROPHILS % 90.7 % (36.0-66.0); PLATELET COUNT, AUTOMATED 310 10^3/uL (150-450); RED BLOOD COUNT 3.09 10^6/uL (4.30-6.10); WHITE BLOOD COUNT 14.4 10^3/uL (4.0-10.0)
[2018-10-20 08:03] LABS: ALBUMIN 2.1 GM/DL (3.2-5.2); ALT/SGPT 66 U/L (12-78); BILIRUBIN,TOTAL 0.7 MG/DL (0.2-1.0); BLOOD UREA NITROGEN 10 MG/DL (7-18); CALCIUM LEVEL 7.2 MG/DL (8.8-10.2); CARBON DIOXIDE LEVEL 27 MEQ/L (21-32); CHLORIDE LEVEL 101 MEQ/L (98-107); CREATININE FOR GFR 0.65 MG/DL (0.70-1.30); GLOMERULAR FILTRATION RATE > 60.0 (>35); GLUCOSE, FASTING 118 MG/DL (70-100); MAGNESIUM LEVEL 1.9 MG/DL (1.8-2.4); POTASSIUM SERUM 3.5 MEQ/L (3.5-5.1); SODIUM LEVEL 134 MEQ/L (136-145)
[2018-10-20] MEDS: PANTOPRAZOLE 40MG TAB (PROTONIX) PO SCH ×2 (08:36→20:47)
[2018-10-20] MEDS: HEPARIN SOD (PORCINE) 5000 UNITS/ML VIAL SQ SCH ×2 (08:36→20:47)
[2018-10-20] MEDS: VENLAFAXINE **XR** 37.5 MG CAPSULE PO SCH (08:36)
[2018-10-20] MEDS: CEPACOL LOZENGE PO PRN (08:36)
[2018-10-20] MEDS: BLISTEX OINTMENT TOP SCH ×3 (08:37→20:48)
[2018-10-20 14:00] VITALS: BP 145/65
[2018-10-20] MEDS ORDERED: POTASSIUM CHLORIDE 10 MEQ SR TABLET PO ONE (14:00)
--- NOTE | 2018-10-20 19:00 | IPN ---
DATE: 10/20/2018 The patient is seen and examined. Reported respirations much improved. Fever has resolved. The patient denies any chest pain, pressure or discomfort. Mild cough. VITAL SIGNS: Temperature 98.9, pulse 66, respirations 18, blood pressure 145/65. Pulse oximetry 95% on room air. LABORATORY DATA: WBC 14.4, hemoglobin and hematocrit 10.3/29.4, platelets 310. Chemistry: Sodium 134, potassium 3.5, chloride 101, bicarbonate 27, BUN 10, creatinine 0.65. PHYSICAL EXAMINATION: GENERAL: The patient is alert and in no acute distress. HEENT: Normocephalic, atraumatic. PULMONARY: Left sided rhonchi. No wheeze. CARDIAC: Regular, S1. S2. ABDOMEN: Soft, nontender. Positive bowel sounds. EXTREMITIES: No clubbing, cyanosis or edema. NEUROLOGIC: NO focal deficits. ASSESSMENT AND PLAN: This is an 83-year-old male patient with underlying medical history of hypothyroidism, hypertension, dyslipidemia, benign prostatic hypertrophy (BPH), gastroesophageal reflux disease (GERD), found outdoors and was minimal responsive, apparently was noted to have overdosed on Benadryl in a suicide attempt. Hospital course was complicated with intubation. The patient was extubated. Also complicated with urinary tract infection (UTI), as well as aspiration pneumonia. 1. Fevers, likely sepsis secondary to urinary tract infection (UTI) and aspiration pneumonia. The patient is currently on cefepime. Followup cultures. Respiratory panel. Monitor for clinical improvement. Followup cultures. IV fluids have been given. Currently improving. 2. Toxic metabolic encephalopathy with hypoxic respiratory failure secondary to substance ingestion, status post mechanical ventilation. Currently comfortable and improving. 3. Hypothermia rhabdomyolysis with acute renal failure. Improved with hydration, secondary to substance ingestion. 4. Suicide ideation. One-to-one sitter. Psychiatrist consulted. The patient was started on Effexor and will likely need inpatient mental health care once the patient's acute medical issues have resolved. 5. Benign prostatic hypertrophy (BPH). Continue current medications. 6. Hypertension. Monitor blood pressure. The patient is currently not on any blood pressure medications. 7. Methicillin sensitive Staphylococcus aureus (MSSA) pneumonia. The patient is currently on cefepime. Repeat culture has been sent. The patient was previously treated with Ancef. 8. Coffee ground emesis. Likely stress induced. Hemoglobin and hematocrit stable. Continue proton pump inhibitor. 9. Gastroesophageal reflux disease (GERD). Continue proton pump inhibitor. 10. Catheter associated urinary tract infection (UTI). Treated with cefepime. 11. Deep vein thrombosis (DVT) prophylaxis. Heparin subcutaneously has been started. DISPOSITION: We will treat for current infection. Once infection is fully treated, the patient will be transferred to psychiatry for possible inpatient mental health care.
[2018-10-20] MEDS: TAMSULOSIN 0.4 MG CAP PO SCH (20:48)
[2018-10-20 22:00] VITALS: BP 145/76
[2018-10-20] MEDS: ACETAMINOPHEN TAB 650MG DOSE (2X325MG) PO PRN (22:05)
[2018-10-21 05:53] LABS: HEMATOCRIT 29.7 % (42.0-52.0); HEMOGLOBIN 10.2 g/dl (13.5-17.5); MEAN CORPUSCULAR HEMOGLOBIN 32.4 pg (27.0-33.0); MEAN CORPUSCULAR HGB CONC 34.3 g/dl (32.0-36.5); MEAN CORPUSCULAR VOLUME 94.3 fl (80.0-96.0); PLATELET COUNT, AUTOMATED 307 10^3/uL (150-450); RED BLOOD COUNT 3.15 10^6/uL (4.30-6.10); WHITE BLOOD COUNT 9.3 10^3/uL (4.0-10.0)
[2018-10-21 06:00] VITALS: BP 120/62
[2018-10-21] MEDS: CEFEPIME HCL 1 GM in D5W MINI-BAG PLUS 50 ML IV SCH ×2 (06:03→17:03)
[2018-10-21] MEDS: LEVOTHYROXINE 112MCG TABLET (0.112MG) NG SCH (06:03)
[2018-10-21 06:24] LABS: ALT/SGPT 84 U/L (12-78); BILIRUBIN,TOTAL 0.5 MG/DL (0.2-1.0); BLOOD UREA NITROGEN 12 MG/DL (7-18); CALCIUM LEVEL 7.6 MG/DL (8.8-10.2); CARBON DIOXIDE LEVEL 28 MEQ/L (21-32); CHLORIDE LEVEL 100 MEQ/L (98-107); CREATININE FOR GFR 0.59 MG/DL (0.70-1.30); GLOMERULAR FILTRATION RATE > 60.0 (>35); GLUCOSE, FASTING 99 MG/DL (70-100); MAGNESIUM LEVEL 1.9 MG/DL (1.8-2.4); POTASSIUM SERUM 3.4 MEQ/L (3.5-5.1); SODIUM LEVEL 135 MEQ/L (136-145); TOTAL PROTEIN 5.4 GM/DL (6.4-8.2)
[2018-10-21] MEDS ORDERED: POTASSIUM CHLORIDE 10 MEQ SR TABLET PO ONE (07:15)
[2018-10-21] MEDS: BLISTEX OINTMENT TOP SCH ×3 (09:00→20:11)
[2018-10-21] MEDS ORDERED: E-Z-HD 98% w/w 340GM SUSP BTL As Ordered ONE (09:46)
[2018-10-21] MEDS ORDERED: E-Z-GAS II EFFERVESCENT PACKET (SODIUM BICARB./CITRIC ACID/SIMETHICONE) As Ordered ONE (09:46)
[2018-10-21] MEDS ORDERED: E-Z-PAQUE 96% w/w SUSP 176GM BTL As Ordered ONE (09:46)
[2018-10-21] MEDS: PANTOPRAZOLE 40MG TAB (PROTONIX) PO SCH ×2 (10:31→20:10)
[2018-10-21] MEDS: VENLAFAXINE **XR** 37.5 MG CAPSULE PO SCH (10:31)
[2018-10-21] MEDS: HEPARIN SOD (PORCINE) 5000 UNITS/ML VIAL SQ SCH ×2 (10:32→20:10)
[2018-10-21 14:00] VITALS: BP 121/62
--- NOTE | 2018-10-21 15:36 | IPNPDOC ---
Text Note Date of Service The patient was seen on 10/21/18. NOTE The patient is seen and examined. Reported respirations much improved. Fever has resolved. The patient denies any chest pain, pressure or discomfort. Mild cough. PHYSICAL EXAMINATION: GENERAL: The patient is alert and in no acute distress. HEENT: Normocephalic, atraumatic. PULMONARY: minimum Left sided rhonchi. No wheeze. CARDIAC: Regular, S1. S2. ABDOMEN: Soft, nontender. Positive bowel sounds. EXTREMITIES: No clubbing, cyanosis or edema. NEUROLOGIC: NO focal deficits. ASSESSMENT AND PLAN: This is an 83-year-old male patient with underlying medical history of hypothyroidism, hypertension, dyslipidemia, benign prostatic hypertrophy (BPH), gastroesophageal reflux disease (GERD), found outdoors and was minimal responsive, apparently was noted to have overdosed on Benadryl in a suicide attempt. Hospital course was complicated with intubation. The patient was extubated. Also complicated with urinary tract infection (UTI), as well as aspiration pneumonia. 1. Fevers, likely sepsis secondary to urinary tract infection (UTI) and aspiration pneumonia. The patient is currently on cefepime. Followup cultures. Respiratory panel. Monitor for clinical improvement. Followup cultures. IV fluids have been given. Currently improving. 2. Toxic metabolic encephalopathy with hypoxic respiratory failure secondary to substance ingestion, status post mechanical ventilation. Currently comfortable and improving. 3. Hypothermia rhabdomyolysis with acute renal failure. Improved with hydration, secondary to substance ingestion. 4. Suicide ideation. One-to-one sitter. Psychiatrist consulted. The patient was started on Effexor and will likely need inpatient mental health care once the patient's acute medical issues have resolved. 5. Benign prostatic hypertrophy (BPH). Continue current medications. 6. Hypertension. Monitor blood pressure. The patient is currently not on any blood pressure medications. 7. Methicillin sensitive Staphylococcus aureus (MSSA) pneumonia. The patient is currently on cefepime. Repeat culture has been sent. The patient was previously treated with Ancef. 8. Coffee ground emesis. Likely stress induced. Hemoglobin and hematocrit stable. Continue proton pump inhibitor. 9. Gastroesophageal reflux disease (GERD). Continue proton pump inhibitor. 10. Catheter associated urinary tract infection (UTI). Treated with cefepime. 11. Aspiration pneumonitis. antibiotics, swallow eval, barium esophagram 11. Deep vein thrombosis (DVT) prophylaxis. Heparin subcutaneously has been started. DISPOSITION: We will treat for current infection. Once infection is fully treated, the patient will be transferred to psychiatry for possible inpatient mental health care. barium esophagram pending report. PT. VS,Audreye, I+O VS, Audreye, I+O Laboratory Tests 10/21/18 05:27 Red Blood Count 3.15 L, Mean Corpuscular Volume 94.3, Mean Corpuscular Hemoglobin 32.4, Mean Corpuscular Hemoglobin Concent 34.3, Red Cell Distribution Width 12.2, Calcium Level 7.6 L, Aspartate Amino Transf (AST/SGOT) 68 H, Alanine Aminotransferase (ALT/SGPT) 84 H, Alkaline Phosphatase 122 H, Total Bilirubin 0.5, Total Protein 5.4 L, Albumin 2.0 L Vital Signs Date Time Temp Pulse Resp B/P (MAP) Pulse Ox O2 Delivery O2 Flow Rate FiO2 10/21/18 14:00 98.7 63 16 121/62 (81) 97 Room Air 10/20/18 06:00 2.0 I&O- Last 24 Hours up to 6 AM 10/21/18 06:00 Intake Total 720 ml Output Total 300 ml Balance 420 ml DORI GOMEZ MD Oct 21, 2018 15:36
--- NOTE | 2018-10-21 18:37 | REP ---
Esophagram The procedure was performed under the direct supervision of Dr. Adames. The images were reviewed with Dr. Adames. A single view PA chest x-ray is submitted as a manager pool film. There is no change compared to a previous chest x-ray performed on 10/19/2018. Liquid barium and gas producing granules were given in the erect position as well as liquid barium in the prone oblique positions in order to perform a double contrast esophagram examination. During the oral and pharyngeal stages of deglutition there is laryngeal penetration. Esophageal transport is prompt and efficient and there is no esophagitis, stricture, mucosal ring or hiatal hernia. Gastroesophageal reflux is not demonstrated on this examination. Impression: There is laryngeal penetration, otherwise, unremarkable double contrast esophagram examination. 1 minute of fluoro time was utilized for this procedure. Reviewed by MELBA Nicholas 10/21/2018 04:44 P Electronically Signed by Thong Adames MD 10/21/2018 06:28 P
[2018-10-21] MEDS: TAMSULOSIN 0.4 MG CAP PO SCH (20:10)
[2018-10-21 22:00] VITALS: BP 136/67
[2018-10-22] MEDS: LEVOTHYROXINE 112MCG TABLET (0.112MG) NG SCH (05:47)
[2018-10-22] MEDS: CEFEPIME HCL 1 GM in D5W MINI-BAG PLUS 50 ML IV SCH ×2 (05:47→17:16)
[2018-10-22 05:58] LABS: HEMATOCRIT 29.6 % (42.0-52.0); HEMOGLOBIN 10.3 g/dl (13.5-17.5); MEAN CORPUSCULAR HEMOGLOBIN 32.5 pg (27.0-33.0); MEAN CORPUSCULAR HGB CONC 34.8 g/dl (32.0-36.5); MEAN CORPUSCULAR VOLUME 93.4 fl (80.0-96.0); PLATELET COUNT, AUTOMATED 349 10^3/uL (150-450); RED BLOOD COUNT 3.17 10^6/uL (4.30-6.10); WHITE BLOOD COUNT 6.6 10^3/uL (4.0-10.0)
[2018-10-22 06:00] VITALS: BP 142/70
[2018-10-22 06:29] LABS: ALT/SGPT 71 U/L (12-78); BILIRUBIN,TOTAL 0.4 MG/DL (0.2-1.0); BLOOD UREA NITROGEN 12 MG/DL (7-18); CALCIUM LEVEL 7.6 MG/DL (8.8-10.2); CARBON DIOXIDE LEVEL 27 MEQ/L (21-32); CHLORIDE LEVEL 100 MEQ/L (98-107); CREATININE FOR GFR 0.67 MG/DL (0.70-1.30); GLOMERULAR FILTRATION RATE > 60.0 (>35); GLUCOSE, FASTING 95 MG/DL (70-100); MAGNESIUM LEVEL 2.1 MG/DL (1.8-2.4); POTASSIUM SERUM 3.6 MEQ/L (3.5-5.1); SODIUM LEVEL 135 MEQ/L (136-145); TOTAL PROTEIN 5.6 GM/DL (6.4-8.2)
[2018-10-22] MEDS: VENLAFAXINE **XR** 37.5 MG CAPSULE PO SCH (09:02)
[2018-10-22] MEDS: HEPARIN SOD (PORCINE) 5000 UNITS/ML VIAL SQ SCH ×2 (09:02→21:12)
[2018-10-22] MEDS: CEPACOL LOZENGE PO PRN (09:02)
[2018-10-22] MEDS: PANTOPRAZOLE 40MG TAB (PROTONIX) PO SCH ×2 (09:02→21:12)
[2018-10-22] MEDS: BLISTEX OINTMENT TOP SCH ×3 (09:03→21:13)
[2018-10-22] MEDS ORDERED: E-Z-PAQUE 96% w/w SUSP 176GM BTL As Ordered ONE (13:26)
[2018-10-22] MEDS ORDERED: VARIBAR PUDDING 40% w/v 230ML TUBE As Ordered ONE (13:26)
[2018-10-22] MEDS ORDERED: VARIBAR NECTAR 40% w/v 240ML SUSP BTL As Ordered ONE (13:26)
[2018-10-22 14:00] VITALS: BP 130/70
--- NOTE | 2018-10-22 15:21 | REP ---
MODIFIED BARIUM SWALLOW: Lateral cine fluoroscopy. HISTORY: Laryngeal penetration, aspiration evaluation. The patient is status post intubation. FINDINGS: Lateral cine fluoroscopy was acquired in conjunction with the swallowing therapist who fed the patient various consistency barium material. With nectar and thin liquids, there is a slightly delayed epiglottic inversion with laryngeal penetration but no tracheal aspiration was observed. No other motor discoordination barium swallow was observed. No penetration or aspiration was observed with pudding or semisolid ingested material. There is degenerative disc disease and straightening of the cervical spine. IMPRESSION: Laryngeal penetration is again observed. No tracheal aspiration is seen. Fluoroscopy time is 1.1 minutes. Electronically Signed by Thong Adames MD 10/22/2018 05:09 P
--- NOTE | 2018-10-22 15:36 | NUR ---
Pt seen for MBSS to r/o silent aspiration. Pt presented with trace/flash penetration with nectar and thin liquids. No aspiration. Penetration is insignificant. Mechanical soft solids and thin liquids recommended. Addendum: 10/22/18 at 1537 by MARY KAY GOEL [facility] Amended: Links added.
[2018-10-22] MEDS: LACTOBACILLUS ACIDOPHILUS CAP (BACID) PO SCH ×2 (17:16→21:12)
[2018-10-22] MEDS ORDERED: VENL37.598 PO (18:39)
[2018-10-22] MEDS ORDERED: SYNT112T2 NG (18:39)
[2018-10-22] MEDS ORDERED: FLOM0.4C39 PO (18:39)
[2018-10-22] MEDS ORDERED: RISATAB3 PO (18:39)
[2018-10-22] MEDS ORDERED: CEFD300CAP PO (18:39)
--- NOTE | 2018-10-22 19:27 | DSES ---
DATE OF ADMISSION: 10/12/2018 DATE OF DISCHARGE: Pending psychiatry evaluation. PRIMARY CARE PROVIDER: Dr. Evangelista. Arrangements will be made for the patient to get a primary care provider as an outpatient. PSYCHIATRIST: Dr. Carr. PULMONARY CRITICAL CARE ATTENDING: Dr. Virginia Jenkins FINAL DIAGNOSES: 1. Suicidal ideation with overdose of Benadryl resulting in hypothermia, rhabdomyolysis, and acute renal failure. 2. Fever. 3. Sepsis secondary to catheter-associated urinary tract infection (UTI). 4. Aspiration pneumonia. 5. Toxic metabolic encephalopathy. 6. Hypoxic respiratory failure resulting in intubation. 7. Benign prostatic hypertrophy (BPH) . 8. Hypertension. 9. Hypothyroidism. 10. Methicillin sensitive Staphylococcus aureus (MSSA). 11. Coffee ground emesis. 12. Gastroesophageal reflux disease (GERD). HISTORY OF PRESENT ILLNESS: This is an 83-year-old male patient with underlying medical history of hypothyroidism, BPH, who was brought to the hospital after being found by emergency medical services (EMS) sitting outside a parked car with a six pack of beer next to him, which he had emptied, as well as an empty bottle of Benadryl. The patient did have a pulse and was breathing, however, was very lethargic and minimally responsive. Upon arrival, the patient was noted to have dried blood secretions around the patient's nares on his face. There was also minimal response with respirations down to the 6 to 8 per minute. The patient was intubated for airway protection and respiratory depression. He was also hypothermia down to 75, started on active rewarming with warm normal saline, as well as warmed ventilator and Sissy Hugger and heated lamp. Also noted to have more agitation. Given Versed for sedation. HOSPITAL COURSE: The patient was admitted to intensive care unit (ICU) and was on a ventilator under pulmonology service, was actively warmed and treated with antibiotics for aspiration pneumonia. Subsequently, the patient's condition improved. Subsequently, extubated. Found also to have aspiration risk and was placed on nectar-thickened, soft diet. Physical therapy (PT) was ordered. The patient's hospital course was further complicated with fevers and sepsis secondary to urinary tract infection (UTI), catheter-associated, and also aspiration pneumonitis. Speech and swallow study was done, as well as barium esophagram and modified cookie swallow studies. The patient's home medications were continued, including Synthroid. Probiotics were given. Psychiatry was consulted. The patient passed physical therapy. Currently is comfortable and no trouble breathing, able to ambulate. Subsequently, psychiatry was consulted for further management. The patient had a one-to-one sitter with suicidal precautions. VITAL SIGNS: Temperature 98.5, pulse 60, respirations 16, blood pressure 130/70, pulse oximetry 95% on room air. GENERAL: The patient is alert, comfortable, in no acute distress. HEENT: Normocephalic, atraumatic. PULMONARY: Bilaterally clear. CARDIAC: Regular. S1, S2. ABDOMEN: Soft, nontender. Positive bowel sounds. EXTREMITIES: No clubbing, cyanosis or edema. LABORATORY DATA: WBC 6.6, hemoglobin and hematocrit 10.3/29.6, platelets 349. Chemistry: Sodium 135, potassium 3.6, chloride 100, bicarbonate 27, BUN 12, creatinine 0.67. C-reactive protein 11.5. ASSESSMENT AND PLAN: This is an 83-year-old male patient with underlying medical history of hypothyroidism, questionable hypertension, dyslipidemia, benign prostatic hypertrophy (BPH), gastroesophageal reflux disease (GERD), found outdoors and was minimally responsive, apparently noted to overdose on Benadryl to attempt suicide. Hospital course complicated with intubation and subsequently extubation, catheter-associated urinary tract infection (UTI), as well as aspiration pneumonia. 1. Fever, likely sepsis secondary to urinary tract infection (UTI) and aspiration pneumonia. Currently on cefepime with much improvement. Cultures appreciated. IV fluids initially given. Likely switch to Cefdinir for oral antibiotic upon discharge. 2. Toxic metabolic encephalopathy with hypoxic respiratory failure secondary to sepsis and ingestion. Status post mechanical ventilation, currently back to baseline and comfortable. 3. Hypothermia/rhabdomyolysis with acute renal failure, improved. The patient was warmed. Improved with hydration. Currently back to baseline. 4. Suicide ideation. One-to-one sitter. Psychiatry consulted. Started on Effexor. Possible inpatient mental health admission. 5. Benign prostatic hypertrophy (BPH). Continue current medication. 6. Hypertension. The patient is not on any medication. We will monitor clinically. 7. Methicillin sensitive Staphylococcus aureus (MSSA) pneumonia, treated. Continue current antibiotics. 8. Coffee ground emesis, likely secondary to stress induced. Hemoglobin and hematocrit stable. Continue on proton pump inhibitor. 9. Gastroesophageal reflux disease (GERD). Continue proton pump inhibitor. 10. Catheter-associated urinary tract infection (UTI). Treated with cefepime. Could be discharged on Cefdinir. 11. Aspiration pneumonitis. Speech and swallow evaluation. Modified cookie swallow appreciated. [place]-thickened diet. 12. Deep vein thrombosis (DVT) prophylaxis. On heparin subcutaneously as inpatient. DISPOSITION: Pending psychiatry evaluation. DISCHARGE MEDICATIONS: - Cefdinir 300 mg by mouth twice a day for 10 days - Synthroid 112 mcg daily - Probiotics by mouth three times a day - Flomax 0.4 mg by mouth at night - Effexor 37.5 mg by mouth daily DISCHARGE INSTRUCTIONS: Please followup with psychiatry for further care. Followup with primary care provider in 7 days. Followup with speech and swallow for further care. On soft, nectar-thickened diet for now. Activity as tolerated. Fall precautions. Return to the hospital if symptoms worsen.
[2018-10-22] MEDS: TAMSULOSIN 0.4 MG CAP PO SCH (21:12)
[2018-10-22 22:00] VITALS: BP 162/82
[2018-10-23] MEDS: CEFEPIME HCL 1 GM in D5W MINI-BAG PLUS 50 ML IV SCH (05:43)
[2018-10-23] MEDS: LEVOTHYROXINE 112MCG TABLET (0.112MG) NG SCH (05:44)
[2018-10-23 06:00] VITALS: BP 140/65
[2018-10-23 06:01] LABS: HEMATOCRIT 32.7 % (42.0-52.0); HEMOGLOBIN 11.3 g/dl (13.5-17.5); MEAN CORPUSCULAR HEMOGLOBIN 32.6 pg (27.0-33.0); MEAN CORPUSCULAR HGB CONC 34.6 g/dl (32.0-36.5); MEAN CORPUSCULAR VOLUME 94.2 fl (80.0-96.0); PLATELET COUNT, AUTOMATED 398 10^3/uL (150-450); RED BLOOD COUNT 3.47 10^6/uL (4.30-6.10)
[2018-10-23 06:25] LABS: ALT/SGPT 83 U/L (12-78); BILIRUBIN,TOTAL 0.3 MG/DL (0.2-1.0); BLOOD UREA NITROGEN 11 MG/DL (7-18); C REACTIVE PROTEIN QUANTITATIV 8.14 MG/DL (0.00-0.30); CALCIUM LEVEL 7.6 MG/DL (8.8-10.2); CARBON DIOXIDE LEVEL 26 MEQ/L (21-32); CHLORIDE LEVEL 104 MEQ/L (98-107); CREATININE FOR GFR 0.62 MG/DL (0.70-1.30); GLOMERULAR FILTRATION RATE > 60.0 (>35); GLUCOSE, FASTING 98 MG/DL (70-100); MAGNESIUM LEVEL 2.1 MG/DL (1.8-2.4); POTASSIUM SERUM 3.8 MEQ/L (3.5-5.1); SODIUM LEVEL 137 MEQ/L (136-145); TOTAL PROTEIN 5.6 GM/DL (6.4-8.2)
--- NOTE | 2018-10-23 06:49 | MHCR ---
DATE OF CONSULTATION: 10/22/2018 CHIEF COMPLAINT: He took an overdose. SUBJECTIVE: He is 77-[id number]-[id number]. He is . Has two children, both of his daughters live in [place]. He was born and raised in [place]. He has been living in [place], [place] since the late 80s, he and his have been for the last 54 years. He has no prior psychiatric history as far as I am aware. The chart is reviewed, patient is interviewed, history is obtained essentially from these two sources. He does not remember much about coming to the hospital itself, after he had taken the overdose, but does remember leaving home, does remember the intent of taking the overdose. He says he and his live together in [place], have been there for a few decades, children live in [place]. He says lately, over the last couple of months or so, his has talked of wanting to be on her own, or with friends, who he says are single or . He says she generally talks about after she has had a couple of drinks in the evening. Says this has been going on for the last couple of months or so, and he has maintained his own activities, says likes golf, plays it regularly, but has not been able to do so in the off season, says has had a routine of coming home afterwards, getting on the internet, having dinner, watching television with his . He says usually afterwards, she will bring up the matter of separation, says she then starts arguing, he goes upstairs to his room. Says he is bothered by the sentiments, but denies feeling depressed. Says sleep has been a bit unsettled lately, but not by much. Says has maintained his appetite, his activities as well, his concentration, no anhedonia as such, and denies feeling pervasively depressed. Says goes to the gym several times a week, and enjoys that. Denies that he has had thoughts of hurting himself, until lately, when his says that she wanted essentially a divorce. Says that bothered him, and that he has calculated that she would be taken care of financially if he were to , says does not want to lose her, and that the other day he decided that he would end his life. Says he got into the car, had just his own clothes with him, and prior to that, had thought of his family situation, was pleased that his children are settled, has grandchildren who are doing well as well, felt he was not needed by his . Says he [place] way [place] the [address], started driving [place], drove for several hours, says essentially did not stop anywhere except [place] or near there, bought a few beers, sleeping pills. Says later remembers driving to a park, wanted to be a quiet place where he would , says it was dark, says he must have fallen asleep, probably in his car, say he remembers getting up the following day, and continuing to drive, until he was near a small town in this vicinity. Says is not quite sure where it was, but that he took a couple of beers, and then the pills, says does not remember much after that, except that he was possibly "fighting tubes" when he was being brought my EMS. He says does not remember much after that, except when waking up in hospital. He says he saw his . He was intubated, has been looked after by the fitting room operator, and now hospitalist. Has progressed, to the point where he has been considered medically stable, and physical therapy is pleased with his progress as well. He was seen by donte Young from psychiatry, last week, no full evaluation was possible because of patient's condition, but it was recommended that he be hospitalized once he is medically stable. He was also started on Effexor, which he has used for the last few days, at 37.5 mg daily. Says has essentially been indifferent to the fact that he woke up, but now suggests he was "wrong" to attempt to taking his life. Says he had made a vow 54 years ago to protect his , feels he was breaking this vow with the overdose, says he and his have briefly talked about the situation today, as have his daughters, he has two daughters in [place]. He says both of them are here, and have taken their mother out at the moment. He says has generally maintained a routine, usually with golf in the season, says has friends or more acquaintances at the club, says he and his go out with a couple of other couples, but denies he confides in anyone as such. Denies he has felt pervasively depressed, or lost interest in activities which have given him pleasure. Says appetite has generally been good, as has focus, and that he has not felt suicidal in the past. Says has thought that since his children are well established, and his would have enough means to take care of herself, as he has provided for her, and that his grandchildren are now in college as well, that it would be okay for him to . No history consistent with hypomania nor flaquita nor psychosis. No history consistent with posttraumatic stress disorder. Says is generally a relaxed person. Denies any history indicative of chronic anxiety. No history of suicide attempts nor inpatient psychiatric hospitalizations. Has not had any psychotropics as far as he is aware. FAMILY PSYCHIATRIC HISTORY: Denies any as far as he is aware. SUBSTANCE ABUSE HISTORY: Says takes alcohol occasionally, and does not think it has been excessive. He did suggest that he had taken alcohol more regularly in his much younger days. MEDICAL HISTORY: I am unaware if he has had any prior medical difficulties, but the course of this hospitalization has been characterized by metabolic encephalopathy, thought to be secondary to the overdose. CT scan of the head showed no acute intracranial pathology, and urine toxicology was essentially negative. Some concern, according to the notes, regarding possible aspiration, as well as hypothyroidism, and possible upper GI bleed. SOCIAL HISTORY: He was born and raised in [facility]. Says he had to move residence with his family, his father, during difficulties with second World War, in [facility], says they moved to a place which was owned by his mother's family. Says he remembers commuting to school when he was quite young, in the second grade or so, went to a different school a couple of years later, and graduated from college in the same city. 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 Says has two children, his daughters, both of whom live in different parts of [place]. Says has business acquaintances, but that a lot of his acquaintances have over the years. As mentioned previously, he has been associated with acquaintances, says may have had a couple of friends, enjoys playing golf, says spends time on the internet as well later on. He and his have been together for 54 years, he says he has thought that they have done well, until the last couple of months or so, when she has been talking about , and then has asked for a divorce, he feels he could not take that thought, and decided to end his life. Says he and his have only briefly today spoken about this, as have his daughters. Says would want to make changes. MENTAL STATUS EXAMINATION: He is lying in bed, later sitting up in bed, he is in hospital clothes, he is neat. A bit apprehensive initially, but generally cooperative, and more so as the interview proceeded. Was soft spoken, with a low tone or voice as well, but is fluent, no dysarthria. He is coherent. He suggests his mood is okay. Affect is restricted in range, somewhat incongruent with mood. Currently does not have thoughts of hurting himself nor anyone else, and there is no evidence of any psychosis. Does not appear to be internally preoccupied. Can maintain and shift attention adequately. No fluctuation of consciousness. He is alert. He is oriented to place and person, not fully to time, he thought it was the 23 of October. Attention and concentration are good, intellect is average. Judgment is quite questionable. Insight fair. ASSESSMENT: Adjustment disorder with disturbance of emotions and conduct. Rule out other specified depressive disorder. Consider the possibility of major depressive disorder, though, given this history, that does not appear to be very likely. Collateral information would help clarify the diagnosis. He and his have been experiencing some relationship difficulties over the last couple of months, she has apparently recently asked for a divorce, they have been together for more than 50 years, he thought he might as well , as he does not want to be away from her, he drove several hours from his home in [place], bought some beer and pills on the way, took an overdose in this area, was found unresponsive, brought to the hospital and essentially revived, does not remember much about the latter stage of the journey, and has been initially somewhat indifferent to having survived. He and his have just begun talking about what has happened, his daughters have too. He recalled the events of the last couple of days clearly, no delirium at present. RECOMMENDATIONS: Given the severity of the attempt at suicide, the aftermath, as discussed above, and the marital difficulties, he needs inpatient psychiatric hospitalization for further management and stabilization once he is medically cleared. I understand from Dr. Hook, patient is medically stable at present. I would suggest discontinuing the Effexor, not quite clear about the indication for that at present, could be resumed if there is more firm indication, based on collateral history. The DCS application is made. He will be discharged to the inpatient psychiatry unit, I would suggest, when medically stable. Thank you for consult. If you have any questions, please call. The assessment took 90 minutes. SKY
[2018-10-23] MEDS: LACTOBACILLUS ACIDOPHILUS CAP (BACID) PO SCH (08:37)
[2018-10-23] MEDS: PANTOPRAZOLE 40MG TAB (PROTONIX) PO SCH (08:37)
[2018-10-23] MEDS: HEPARIN SOD (PORCINE) 5000 UNITS/ML VIAL SQ SCH (08:38)
[2018-10-23] MEDS: BLISTEX OINTMENT TOP SCH (08:38)
--- NOTE | 2018-10-23 12:36 | MHCRPDOC ---
[facility] Consultation Consultation DATE OF CONSULTATION: 10/23/18 CONSULTATION REQUESTED BY: Dr. Hook IDENTIFYING DATA: He is an 83-year-old oriental male of [place] origin who was admitted for neurometabolic encephalopathy and hypothermia. He was recently intubated and currently extubated. Consult was called to evaluate for possible suicide attempt. The staff was consulted. Spoke to the doctor, and collaterals obtained from the patient's mother and daughter, who were present at his bedside. HISTORY OF PRESENT ILLNESS: Per Dr. Diaz Consult note: Patient is currently lethargic. His voice is feeble and hoarse. Unable to speak clearly. Most of the history is obtained from his daughter, who spoke in Colombian to him. Patient reports that he thought that life was not worth living after an argument with his , when she told him that she would like to live without him by herself. Her reports he was depressed minimally for the last 6 months, but it worsened after the argument and wanted to end his life by overdosing on sleeping pills. He ingested a bottle of Benadryl. He was sitting in the [facility] in front of his car with six packs of beer. Two of them were emptied, and a bottle of Benadryl, which had been emptied. When police spotted him, he was hypothermic and was responding very feebly. He was intubated and brought to the hospital. He was medically treated. He still seems to be lethargic, unable to speak clearly. He reports, "the medication will not help me," and he wants to speak to his . Denies any vegetative signs of depression. Reports his depression is about 2 in scale of 1-10, 10 being the highest." Pt seen today on re-evaluation and states he feels good and like his normal self. Denies depression, anxiety. Is happy to have his daughters and with them and feels very supported by them. Per pt's daughters he is doing well, doesn't seem depressed, and the pt and his have talked and worked out some of their marriage stressors so things are improved between the too of them. Daughter's feel pt doesn't need to be admitted to [facility] as pt appears to be doing much better and think he may get more depressed not having his family who he is close with. One of pt's daughter's plans to stay with pt and pt's for a period of time to provided close support. Pt hopes to go home and be with his family. He's agreeable to outpatient therapy and marital counseling. He denies depression, anxiety, insomnia, SI/HI, hallucinations, delusions. Feels safe to d/c home with his family. Spoke with Dr. Carr and discussed discharge home and Dr. Carr would like pt admitted [facility] prior d/c. STRESSORS: Denies any stressors. PAST PSYCHIATRIC HISTORY: Denies any history of psychiatric hospitalization or having taken any psychotropic medications or having been in therapy. SUICIDAL HISTORY: Denies suicide attempt in the past. MEDICAL HISTORY: Denies medical issues. SOCIAL HISTORY: He migrated from [place] in 1960s. Recently got his citizenship. He lives with his . His and daughter are very supportive of him. His daughter works in social sciences lecturer. MENTAL STATUS EXAMINATION: Patient walking halls with his and daughter prior to being seen and when seen he was clean and in hospital gown. Cooperative. Speaks in slightly hoarse voice moderate bolivian. His family aids in any needed translation. He states his mood is "good" and his affect appears euthymic, full range, and bright." Psychomotor activity is average. He makes good eye contact. Future and goal di rected toward going hopes to go home and be with his family. Thought content: Denied any delusions. Denied any suicidal or homicidal ideas. Cognition: He is alert, oriented to time, place, person, and situation. Memory: Immediate, recent, and remote are good. Insight and judgment are good DIAGNOSES: Major depressive disorder, rule out adjustment disorder. PLAN: 1. d/c 1:1 sitter 2. Admit to [facility] and [facility] will d/c pt home with family today 3. outpatient follow-up behavioral [place] for therapy/marital counseling Vital Signs Vital Signs Date Time Temp Pulse Resp B/P (MAP) Pulse Ox O2 Delivery O2 Flow Rate FiO2 10/23/18 06:00 97.8 56 15 140/65 (90) 95 Room Air 10/20/18 06:00 2.0 Laboratory Data 24H Labs Laboratory Tests 2 10/23/18 05:35: Nucleated Red Blood Cells % (auto) 0.0, Anion Gap 7L, Glomerular Filtration Rate > 60.0, Blood Urea Nitrogen 11, Creatinine 0.62L, Sodium Level 137, Potassium Level 3.8, Chloride Level 104, Carbon Dioxide Level 26, Calcium Level 7.6L, Aspartate Amino Transf (AST/SGOT) 60H, Alanine Aminotransferase (ALT/SGPT) 83H, Alkaline Phosphatase 126H, Total Bilirubin 0.3, Total Protein 5.6L, Albumin 2.0L, Magnesium Level 2.1, C-Reactive Protein, Quantitative 8.14H, Albumin/Globulin Ratio 0.56L Home Medications Current Medications Current Medications Acetaminophen (Tylenol Suspension) 325 mg Q4HP PRN GT PAIN / FEVER Last adm inistered on 10/19/18at 12:21; Start 10/13/18 at 15:15; Stop 10/19/18 at 14:25; Status DC Acetaminophen (Tylenol Tab) 650 mg Q6HP PRN PO PAIN / FEVER Last administered on 10/20/18 22:05; Start 10/19/18 at 14:30 Ampicillin Sodium/ Sulbactam Sodium 3 gm/Dextrose 100 ml @ 200 mls/hr Q6H IV Last administered on 10/16/18at 11:46; Start 10/13/18 at 11:00; Stop 10/16/18 at 14:48; Status DC Cefazolin Sodium 1 gm/Dextrose 50 ml @ 100 mls/hr Q8H IV Last administered on 10/19/18at 08:08; Start 10/17/18 at 16:00; Stop 10/19/18 at 15:31; Status DC Cefepime HCl 1 gm/ Dextrose 50 ml @ 100 mls/hr Q12H IV Last administered on 10/23/18 05:43; Start 10/19/18 at 17:00 Cetylpyridinium Chloride (Cepacol) 1 claudia Q2HP PRN PO PAIN Last administered on 10/22/18 09:02; Start 10/16/18 at 16:30 Chlorhexidine Gluconate (Peridex Oral Rinse) SWAB/BRUSH ORAL CAVITY BID MT Last administered on 10/14/18at 09:29; Start 10/12/18 at 21:00; Stop 10/14/18 at 16:48; Status DC Dexmedetomidine HCl 200 mcg/IV Miscellaneous Supplies 50 ml @ 0 mls/hr Q0M IV Last administered on 10/14/18at 10:17; Start 10/14/18 at 08:30; Stop 10/14/18 at 16:48; Status DC Dextrose (Dextrose 50%) 25 ml ASDIRECTED PRN IV SEE LABEL COMMENTS Last administered on 10/14/18at 08:27; Start 10/13/18 at 01:45 Dextrose (Dextrose 50%) 50 ml STAT STAT IV Last administered on 10/14/18at 09:28; Start 10/14/18 at 09:17; Stop 10/14/18 at 09:20; Status DC Dextrose/Water 1,000 ml @ 50 mls/hr Q20H IV Last administered on 10/14/18at 16:40; Start 10/12/18 at 22:30; Stop 10/15/18 at 16:24; Status DC Enoxaparin Sodium (Lovenox) 40 mg QHS SC ; Start 10/12/18 at 21:00; Stop 10/12/18 at 21:00; Status DC Etomidate (Amidate) 20 mg STAT STAT IV Last administered on 10/12/18at 14:08; Start 10/12/18 at 14:08; Stop 10/12/18 at 18:41; Status DC Fentanyl Citrate (Sublimaze) 25 mcg Q30MP PRN IV PAIN Last administered on 10/14/18at 05:01; Start 10/12/18 at 18:00; Stop 10/14/18 at 16:48; Status DC Glucagon (Glucagon) 1 mg ASDIRECTED PRN SC SEE LABEL COMMENTS; Start 10/13/18 at 01:45 Glucose (Glucose) 16 GM ASDIRECTED PRN PO SEE LABEL COMMENTS; Start 10/13/18 at 01:45 Heparin Sodium (Porcine) (Heparin) 5,000 units BID SQ ; Start 10/12/18 at 21:00; Stop 10/12/18 at 21:00; Status DC Heparin Sodium (Porcine) (Heparin) 5,000 units BID SQ Last administered on 10/23/18at 08:38; Start 10/13/18 at 21:00 Home Med (Med Rec Complete!) ASDIRECTED XX ; Start 10/12/18 at 17:30; Stop 10/12/18 at 17:30; Status DC Lactobacillus Acidophilus (Bacid) 1 ea TID PO Last administered on 10/23/18at 08:37; Start 10/22/18 at 16:00 Levothyroxine Sodium (Synthroid) 112 mcg DAILY@06 NG Last administered on 9at 05:44; Start 10/14/18 at 06:00 Midazolam HCl (Versed) 2 mg STAT STAT IV Last administered on 10/12/18at 15:36; Start 10/12/18 at 15:30; Stop 10/12/18 at 15:31; Status DC Midazolam HCl 50 mg/Dextrose 50 ml @ 2 mls/hr Q24H IV ; Start 10/12/18 at 1 7:00; Stop 10/12/18 at 17:20; Status DC Multi-Ingredient Ointment (Blistex) TID TOP Last administered on 10/23/18at 08:38; Start 10/14/18 at 21:00 Pantoprazole Sodium (Protonix) 40 mg BID IV Last administered on 10/15/18at 08:34; Start 10/14/18 at 21:00; Stop 10/15/18 at 12:20; Status DC Pantoprazole Sodium (Protonix) 40 mg BID PO Last administered on 10/23/18at 08:37; Start 10/15/18 at 21:00 Pantoprazole Sodium (Protonix) 40 mg Q24H IV ; Start 10/12/18 at 21:00; Stop 10/12/18 at 21:00; Status DC Pantoprazole Sodium 40 mg/ Dextrose 50 ml @ 10 mls/hr Q5H IV Last administered on 10/14/18at 06:15; Start 10/12/18 at 19:30; Stop 10/14/18 at 12:32; Status DC Potassium Chloride 10 meq/ IV Miscellaneous Supplies 100 ml @ 100 mls/hr 0000,2200,2300 IV Last administered on 10/15/18at 00:00; Start 10/14/18 at 22:00; Stop 10/15/18 at 02:00; Status DC Potassium Chloride 10 meq/ IV Miscellaneous Supplies 100 ml @ 100 mls/hr Q1H IV Last administered on 10/12/18at 23:22; Start 10/12/18 at 21:00; Stop 10/12/18 at 23:59; Status DC Potassium Chloride 10 meq/ IV Miscellaneous Supplies 100 ml @ 100 mls/hr Q1H IV Last administered on 10/14/18at 13:03; Start 10/14/18 at 09:00; Stop 10/14/18 at 11:59; Status DC Potassium Chloride 10 meq/ IV Miscellaneous Supplies 100 ml @ 100 mls/hr Q1H IV Last administered on 10/14/18at 21:05; Start 10/14/18 at 17:00; Stop 10/14/18 at 19:59; Status DC Potassium Chloride/Sodium Chloride 1,000 ml @ 100 mls/hr Q10H IV Last administered on 10/19/18at 05:35; Start 10/14/18 at 16:45; Stop 10/19/18 at 09:34; Status DC Potassium Phos/ Sodium Phos (Neutra-Phos 1.25gm Packet) 1 pkt BID PO Last adm inistered on 10/14/18at 09:29; Start 10/14/18 at 09:00; Stop 10/14/18 at 16:28; Status DC Potassium Phos/ Sodium Phos (Neutra-Phos 1.25gm Packet) 1 pkt TID PO Last administered on 10/18/18at 16:10; Start 10/14/18 at 21:00; Stop 10/18/18 at 20:59; Status DC Propofol 1000 mg/ IV Miscellaneous Supplies 100 ml @ 1.89 mls/hr Q24H IV Last administered on 10/12/18at 17:28; Start 10/12/18 at 17:15; Stop 10/12/18 at 18:09; Status DC Propofol 1000 mg/ IV Miscellaneous Supplies 100 ml @ 3.78 mls/hr Q24H IV Last administered on 10/12/18at 18:10; Start 10/12/18 at 17:54; Stop 10/13/18 at 01:49; Status DC Propofol 1000 mg/ IV Miscellaneous Supplies 100 ml @ 3.78 mls/hr Q24H IV Last administered on 10/14/18at 06:15; Start 10/13/18 at 01:48; Stop 10/14/18 at 16:48; Status DC Sodium Chloride 1,000 ml @ 80 mls/hr [id number] IV Last administered on 10/19/18at 15:48; Start 10/19/18 at 15:45; Stop 10/20/18 at 04:14; Status DC Sodium Chloride 1,000 ml @ 100 mls/hr Q10H IV Last administered on 10/14/18at 05:48; Start 10/12/18 at 19:15; Stop 10/14/18 at 16:41; Status DC Sodium Chloride 1,000 ml @ 250 mls/hr Q4H IV Last administered on 10/12/18at 16:30; Start 10/12/18 at 15:30; Stop 10/12/18 at 19:14; Status DC Succinylcholine Chloride (Quelicin) 100 mg STAT STAT IV Last administered on 10/12/18at 14:08; Start 10/12/18 at 14:08; Stop 10/12/18 at 18:41; Status DC Tamsulosin HCl (Flomax) 0.4 mg QHS PO Last administered on 10/22/18at 21:12; Start 10/18/18 at 21:00 Vancomycin HCl 1000 mg/IV Miscellaneous Supplies 1 each/ Dextrose 270 ml @ 270 mls/hr Q12H IV Last administered on 10/17/18at 03:35; Start 10/14/18 at 16:00; Stop 10/17/18 at 15:55; Status DC Venlafaxine HCl (Effexor Xr) 37.5 mg DAILY PO Last administered on 10/22/18at 09:02; Start 10/18/18 at 09:00; Stop 10/23/18 at 07:32; Status DC Scheduled (Clare-Bid Probiotic) 1 Tab Tab, 1 EA PO TID Cefdinir (Cefdinir) 300 Mg Cap, 1 CAP PO BID Levothyroxine Sodium (Synthroid) 112 Mcg Tab, 112 MCG NG DAILY@06 Tamsulosin Hydrochloride (Flomax) 0.4 Mg Cap, 0.4 MG PO QHS Allergies Coded Allergies: Unobtainable (Unverified , 10/12/18) PATIENT UNCONSCIOUS SURI SMITH DO Oct 23, 2018 12:36
[2018-10-23 14:00] VITALS: BP 120/62
--- NOTE | 2018-10-23 18:38 | DSES ---
DATE OF ADMISSION: 10/12/2018 DATE OF DISCHARGE: 10/23/2018 ADDENDUM PRIMARY CARE PROVIDER: Dr. Evangelista in [place] PSYCHIATRIST: Dr. Tillman and Dr. Carr PROFESSOR OF LITERATURE: Dr. Virginia Jenkins FINAL DIAGNOSES: 1. Suicidal ideation with overdose on Benadryl, resulting in hypothermia, rhabdomyolysis, and acute renal failure. 2. Fever. 3. Sepsis secondary to catheter-associated urinary tract infection. 4. Aspiration pneumonia. 5. Toxic metabolic encephalopathy. 6. Hypoxic respiratory failure, resulting in intubation. 7. BPH. 8. Hypertension. 9. Hypothyroidism. 10. Methicillin-sensitive Staphylococcus aureus pneumonia. 11. Coffee-ground emesis secondary to stress ulcer. 12. Gastroesophageal reflux disease. Please refer to the discharge summary dictated on 10/22/2018 for further information. Patient was initially planned on discharge to inpatient mental health, but after further discussion with psychiatrist, the psychiatrist believed that given patient has been inpatient for such a long period and with marked improvement of patient's depression and with strong family support, the psychiatrist, Dr. Tillman, believes the patient would not benefit from inpatient mental health, and actually inpatient health treatment would make the patient worse. Subsequently, patient was admitted to inpatient mental health and then discharged from inpatient mental health for outpatient followup with psychiatry and primary care provider. Need further outpatient followup with speech and swallow as well. Patient is to complete one 10-day course of cefdinir. Further followup with speech and swallow. Diet has been advanced to soft diet on thin liquid by speech and swallow. Fall precautions. Return to the hospital if symptoms worsen. Further information as per previous discharge summary.
[2018-10-23] MEDS ORDERED: PANTOPRAZOLE 40MG TAB (PROTONIX) PO SCH (21:00)
--- NOTE | 2018-10-24 07:27 | MHIPN ---
DATE: 10/23/2018 I received a call this morning from Dr. Tillman. She said she had been informed of the patient, my evaluation, and the application for admission to inpatient psychiatry, but that the family wanted to take him home, and felt that things were better, and that he and his have spoken, and that he would feel more depressed if he was admitted to the inpatient psychiatry unit, and that if it were okay with me, Dr. Tillman will discharge him. I expressed my concerns about that and informed her that I would not agree with that course of action, since the patient has made a serious suicide attempt, has essentially barely survived this, has been medically compromised for several days, and in my opinion had not received psychiatric care, as he has been on the medical floor, recovering from the overdose. All of this is outlined in my assessment, and my reason for the patient being hospitalized, taking into consideration, as well, that he [place] out of [place], and family is here from elsewhere, and a full evaluation, including with them, is warranted, and an assessment ought to be done, and treatment plans set up, including outpatient care when he is stable. All of that is best carried out, in my opinion, in the inpatient unit, and he remains at risk, given the circumstances described in my evaluation. Dr. Tillman informed me that if he were admitted to the inpatient unit, she would discharge him straight away. I informed her that is of course her prerogative, but I would advise against it, without a comprehensive evaluation. I feel strongly that he ought to be hospitalized psychiatrically, given the circumstances and patient's state, and at the very least, if he were to be discharged from the medical floor, he ought to go an inpatient psychiatry unit near his residence, rather than home. After a short while, I proceeded to give admission orders to the inpatient psychiatry unit here, at [facility]. The patient, in my opinion, needs a full assessment, as well as evaluation of collaterals, before being considered for discharge, as he remains at risk. [facility]
== END 2018-10-23 15:03 | DRG 917 ==
LOC: M ED 13:35 → EDBD 17:54 → M ED INP 17:54 → M ICU 19:02 → M MSPAV 10-15 19:44
PROVIDERS: ADMIT Internal Medicine Pulmonary Disease; ATTEND Hospitalist
PROC: 0BH17EZ Insertion of Endotracheal Airway into Trachea, Via Natural or Artificial Opening (ICD-10-PCS; principal; 2018-10-12)
PROC: 5A1945Z Respiratory Ventilation, 24-96 Consecutive Hours (ICD-10-PCS; 2018-10-12)
DX: T45.0X2A Poisoning by antiallergic and antiemetic drugs, intentional self-harm, initial encounter (principal); G92 Toxic encephalopathy; J69.0 Pneumonitis due to inhalation of food and vomit; J96.01 Acute respiratory failure with hypoxia; A41.9 Sepsis, unspecified organism; N17.9 Acute kidney failure, unspecified; E87.4 Mixed disorder of acid-base balance; M62.82 Rhabdomyolysis; N39.0 Urinary tract infection, site not specified; K92.2 Gastrointestinal hemorrhage, unspecified; T83.518A Infection and inflammatory reaction due to other urinary catheter, initial encounter; T68.XXXA Hypothermia, initial encounter; X31.XXXA Exposure to excessive natural cold, initial encounter; Y92.89 Other specified places as the place of occurrence of the external cause; I10 Essential (primary) hypertension; E78.5 Hyperlipidemia, unspecified; E03.9 Hypothyroidism, unspecified; N40.0 Benign prostatic hyperplasia without lower urinary tract symptoms; K21.9 Gastro-esophageal reflux disease without esophagitis; E16.2 Hypoglycemia, unspecified; F32.9 Major depressive disorder, single episode, unspecified; F43.25 Adjustment disorder with mixed disturbance of emotions and conduct; Y84.6 Urinary catheterization as the cause of abnormal reaction of the patient, or of later complication, without mention of misadventure at the time of the procedure

== ENCOUNTER 2018-10-23 13:37 | Inpatient (IN) | payer MEDICARE ==
[~2018-10-23 13:37] MED LIST: CEFD300CAP PO; FLOM0.4C39 PO; RISATAB3 PO; SYNT112T2 NG; VENL37.598 PO
--- NOTE | 2018-10-23 13:53 | MHHPEPDOC ---
General Date Of Admission: Oct 23, 2018 Legal Status: 9.37 Chief Complaint "I feel good" History of Present Illness Per my consult note 10/23/18 after pt seen on medical for evaluation: e is an 83-year-old oriental male of [place] origin who was admitted for neurometabolic encephalopathy and hypothermia. He was recently intubated and currently extubated. Consult was called to evaluate for possible suicide attempt. The staff was consulted. Spoke to the doctor, and collaterals obtained from the patient's mother and daughter, who were present at his bedside. HISTORY OF PRESENT ILLNESS: Per Dr. Diaz Consult note: Patient is currently lethargic. His voice is feeble and hoarse. Unable to speak clearly. Most of the history is obtained from his daughter, who spoke in [place] to him. Patient reports that he thought that life was not worth living after an argument with his , when she told him that she would like to live without him by herself. Her reports he was depressed minimally for the last 6 months, but it worsened after the argument and wanted to end his life by overdosing on sleeping pills. He ingested a bottle of Benadryl. He was sitting in the [facility] in front of his car with six packs of beer. Two of them were emptied, and a bottle of Benadryl, which had been emptied. When police spotted him, he was hypothermic and was responding very feebly. He was intubated and brought to the hospital. He was medically treated. He still seems to be lethargic, unable to speak clearly. He reports, "the medication will not help me," and he wants to speak to his . Denies any vegetative signs of depression. Reports his depression is about 2 in scale of 1-10, 10 being the highest." Pt seen today on re-evaluation and states he feels good and like his normal self. Denies depression, anxiety. Is happy to have his daughters and with them and feels very supported by them. Per pt's daughters he is doing well, doesn't seem depressed, and the pt and his have talked and worked out some of their marriage stressors so things are improved between the too of them. Daughter's feel pt doesn't need to be admitted to [facility] as pt appears to be doing much better and think he may get more depressed not having his family who he is close with. One of pt's daughter's plans to stay with pt and pt's for a period of time to provided close support. Pt hopes to go home and be with his family. He's agreeable to outpatient therapy and marital counseling. He denies depression, anxiety, insomnia, SI/HI, hallucinations, delusions. Feels safe to d/c home with his family. Spoke with Dr. Carr and discussed discharge home and Dr. Carr would like pt admitted [facility] prior d/c. Psychiatric Review of Systems Depression (2 or more weeks): denies Lolly (4 or more days of): denies Psychosis: delusions PTSD: denies Anxiety: denies Past Psychiatric History PAST PSYCHIATRIC HISTORY: Denies any history of psychiatric hospitalization or having taken any psychotropic medications or having been in therapy. Past Medical History Medical Problems denies Head Injury: No Seizures: No Hospitalizations: No Surgeries: No Family Medical/Psychiatric HX Medical Problems denies Psychiatric Disorders: No Addiction: No Suicide Attemps/Completions: No Addiction History alcohol (beer) Social History He migrated from [place] in 1960s. Recently got his citizenship. He lives with his . His and daughter are very supportive of him. His daughter works in social sciences research scientist. Mental Status Examination General Appearance: well groomed, ds/not appear stated age (younger), hospital scubs/clothing Build: average, other (petite) Demeanor: average Eye Contact: average Activity: average Behavior: cooperative Speech: spontaneous, other (hoarse, divehi accent) Mood: euthymic Mood good Affect: full, appropriate, congruent Thought Process: logical/linear, intact Thought Content (Delusions): none reported, denies SI, HI, AVH Thought Content (Other): none reported, appropriate Thought Content (Aggressive): none reported Perception (Hallucinations): none reported Perception (Other): none reported Cognition (Impairment of): none reported Cognition(Intelligence Est.): average Oriented: Awake, Alert, Oriented times three Insight: good Judgment: Good Psychosis: Denies Diagnoses Depression Unspecified R/O adjustment d/o with depressed mood Assessment Pt seen today on re-evaluation and states he feels good and like his normal self. Denies depression, anxiety. Is happy to have his daughters and with them and feels very supported by them. Per pt's daughters he is doing well, doesn't seem depressed, and the pt and his have talked and worked out some of their marriage stressors so things are improved between the too of them. Daughter's feel pt doesn't need to be admitted to [facility] as pt appears to be doing much better and think he may get more depressed not having his family who he is close with. One of pt's daughter's plans to stay with pt and pt's for a period of time to provided close support. Pt hopes to go home and be with his family. He's agreeable to outpatient therapy and marital counseling. He denies depression, anxiety, insomnia, SI/HI, hallucinations, delusions. Feels safe to d/c home with his family. Spoke with Dr. Carr and discussed discharge home and Dr. Carr would like pt admitted [facility] prior d/c. Initial Treatment Plan 1. Patient was admitted on a 9.39 status. 2. Complete history was obtained. 3. With patients permission, family will be contacted and database will be expanded. 4. Patients medication regimen will be reviewed and changed accordingly. 5. Patient will be provided with protected environment. 6. Patient will be treated with individual, group, and milieu therapies. 7. Patient will receive supportive psych-education. 8. Discharge planning will commence immediately. 9. Outpatient follow-up treatment will be strongly recommended. 10. The initial treatment plan will focus initially on: * Depression. * Risk for suicide. * Substance abuse. 11. outpatient follow-up behavioral health for therapy/marital counseling ESTIMATED LENGTH OF STAY: 1 DAYS. TIME SPENT COUNSELING AND COORDINATING INITIAL CARE: 60 minutes. Medications Scheduled (Clare-Bid Probiotic) 1 Tab Tab, 1 EA PO TID Cefdinir (Cefdinir) 300 Mg Cap, 1 CAP PO BID Levothyroxine Sodium (Synthroid) 112 Mcg Tab, 112 MCG NG DAILY@06 Tamsulosin Hydrochloride (Flomax) 0.4 Mg Cap, 0.4 MG PO QHS Allergies Coded Allergies: Unobtainable (Unverified , 10/12/18) PATIENT UNCONSCIOUS SURI SMITH DO Oct 23, 2018 13:53
[2018-10-23] MEDS ORDERED: CEPACOL LOZENGE PO PRN (14:00)
--- NOTE | 2018-10-23 14:15 | MHDSPDOC ---
[facility] Discharge Summary Discharge Summary DATE OF ADMISSION: Oct 23, 2018 DATE OF DISCHARGE: Oct 23, 2018 IDENTIFYING DATA: He is an 83-year-old oriental male of Sinhala origin who was admitted for neurometabolic encephalopathy and hypothermia. He was recently intubated and currently extubated. Consult was called to evaluate for possible suicide attempt. The staff was consulted. Spoke to the doctor, and collaterals obtained from the patient's mother and daughter, who were present at his bedside. HISTORY OF PRESENT ILLNESS: Per Dr. Diaz Consult note: Patient is currently lethargic. His voice is feeble and hoarse. Unable to speak clearly. Most of the history is obtained from his daughter, who spoke in Sinhala to him. Patient reports that he thought that life was not worth living after an argument with his , when she told him that she would like to live without him by herself. Her reports he was depressed minimally for the last 6 months, but it worsened after the argument and wanted to end his life by overdosing on sleeping pills. He ingested a bottle of Benadryl. He was sitting in the [facility] in front of his car with six packs of beer. Two of them were emptied, and a bottle of Benadryl, which had been emptied. When police spotted him, he was hypothermic and was responding very feebly. He was intubated and brought to the hospital. He was medically treated. He still seems to be lethargic, unable to speak clearly. He reports, "the medication will not help me," and he wants to speak to his . Denies any vegetative signs of depression. Reports his depression is about 2 in scale of 1-10, 10 being the highest." Pt seen today on re-evaluation and states he feels good and like his normal self. Denies depression, anxiety. Is happy to have his daughters and with them and feels very supported by them. Per pt's daughters he is doing well, doesn't seem depressed, and the pt and his have talked and worked out some of their marriage stressors so things are improved between the too of them. Daughter's feel pt doesn't need to be admitted to [facility] as pt appears to be doing much better and think he may get more depressed not having his family who he is close with. One of pt's daughter's plans to stay with pt and pt's for a period of time to provided close support. Pt hopes to go home and be with his family. He's agreeable to outpatient therapy and marital counseling. He denies depression, anxiety, insomnia, SI/HI, hallucinations, delusions. Feels safe to d/c home with his family. Spoke with Dr. Carr and discussed discharge home and Dr. Carr would like pt admitted [facility] prior d/c. STRESSORS: Denies any stressors. PAST PSYCHIATRIC HISTORY: Denies any history of psychiatric hospitalization or having taken any psychotropic medications or having been in therapy. SUICIDAL HISTORY: Denies suicide attempt in the past. MEDICAL HISTORY: Denies medical issues. SOCIAL HISTORY: He migrated from [place] in 1960s. Recently got his citizenship. He lives with his . His and daughter are very supportive of him. His daughter works in social secretary. MENTAL STATUS EXAMINATION: Patient walking halls with his and daughter prior to being seen and when seen he was clean and in hospital gown. Cooperative. Speaks in slightly hoarse voice moderate gabonese. His family aids in any needed translation. He states his mood is "good" and his affect appears euthymic, full range, and bright." Psychomotor activity is average. He makes good eye contact. Future and goal directed toward going hopes to go home and be with his family. Thought content: Denied any delusions. Denied any suicidal or homicidal ideas. Cognition: He is alert, oriented to time, place, person, and situation. Memory: Immediate, recent, and remote are good. Insight and judgment are good DIAGNOSES: Major depressive disorder, rule out adjustment disorder. PLAN: 1. Admit to [facility] and [facility] will d/c pt home with family today 2. outpatient follow-up behavioral [place] for therapy/marital counseling Medications Scheduled (Clare-Bid Probiotic) 1 Tab Tab, 1 EA PO TID, #90 Cefdinir (Cefdinir) 300 Mg Cap, 1 CAP PO BID for 10 Days, #20 Levothyroxine Sodium (Synthroid) 112 Mcg Tab, 112 MCG NG DAILY@06, #30 Tamsulosin Hydrochloride (Flomax) 0.4 Mg Cap, 0.4 MG PO QHS, #30 Allergies Coded Allergies: Unobtainable (Unverified , 10/12/18) PATIENT UNCONSCIOUS SURI SMITH DO Oct 23, 2018 14:15
[2018-10-23] MEDS ORDERED: LACTOBACILLUS ACIDOPHILUS CAP (BACID) PO SCH (16:00)
[2018-10-23] MEDS ORDERED: BLISTEX OINTMENT TOP SCH (16:00)
--- NOTE | 2018-10-23 20:22 | IPN ---
DATE: 10/23/2018 The patient is seen and examined. No acute events overnight. The patient was seen by psychiatry, Dr. Carr and Dr. Tillman. Denies any chest pain, pressure or discomfort. The patient was also seen by speech and swallow. Diet was advanced to clear liquids, soft diet. VITAL SIGNS: Temperature 97.6, pulse 53, respirations 16, blood pressure 120/62, pulse oximetry 96% on room air. LABORATORY: WBC 5, hemoglobin and hematocrit 13.3 and 32.7, platelets 398. Chemistry: Sodium 137, potassium 3.8, chloride 104, bicarbonate 26, BUN 11, creatinine 0.62. GENERAL: The patient is alert, comfortable. Hoarseness. No acute distress. HEENT: Normocephalic, atraumatic. PULMONARY: Bilaterally clear. CARDIAC: Regular. S1, S2. ABDOMEN: Soft, nontender. EXTREMITIES: No clubbing, cyanosis or edema. ASSESSMENT AND PLAN: This is an 83-year-old male patient with underlying medical history of hypothyroidism, questionable hypertension, dyslipidemia, benign prostatic hypertrophy (BPH), gastroesophageal reflux disease (GERD), who was found outdoors and was minimally responsive. Noted to overdose on Benadryl for attempted suicide. The patient's hospital course was complicated with intubation, subsequent extubation, catheter associated urinary tract infection (UTI), as well as aspiration pneumonia. 1. Fever, likely sepsis secondary to urinary tract infection (UTI), possible aspiration pneumonia. Currently on cefepime. The patient will be completing outpatient dose of 10 days of Cefdinir. Clinically improved. Cultures appreciated. Initially given IV fluid. 2. Toxic metabolic encephalopathy with hypoxic respiratory failure secondary to sepsis and substance ingestion. Status post mechanical ventilation. Currently back to baseline. 3. Hypothermia, rhabdomyolysis and acute renal failure. Improved and resolved. The patient was actively warmed and hydrated. 4. Suicide ideation. Psychiatry has been consulted. Given hospitalization with marked improvement of the patient's depression and strong family support, Dr. Tillman of psychiatry believed the patient will not benefit from inpatient mental health. Subsequently, the patient was discharged from inpatient mental health today. 5. Benign prostatic hypertrophy (BPH). Continue current medications. 6. Hypertension. The patient is not on any medication. Outpatient followup. 7. Methicillin sensitive Staphylococcus aureus (MSSA) pneumonia. The patient completed antibiotics, currently under treatment for catheter associated urinary tract infection (UTI) with Cefdinir. 8. Coffee ground emesis. The patient has a stable hemoglobin and hematocrit, likely secondary to stress induced. 9. Gastroesophageal reflux disease (GERD). Continue proton pump inhibitor. 10. Catheter associated urinary tract infection (UTI). The patient will complete outpatient course of Cefdinir. 11. Aspiration pneumonitis. Speech and swallow appreciated. Modified cookie swallow appreciated. Diet has been advanced to thin liquids with soft diet. 12. Deep vein thrombosis (DVT) prophylaxis. The patient is on heparin subcutaneously while inpatient, will be discontinued upon discharge. DISPOSITION: The patient will be discharged by psychiatry later today. Further recommendations as per psychiatrist. Please refer to discharge summary dictated earlier for further information.
[2018-10-23] MEDS ORDERED: PANTOPRAZOLE 40MG TAB (PROTONIX) PO SCH (21:00)
[2018-10-23] MEDS ORDERED: TAMSULOSIN 0.4 MG CAP PO SCH (21:00)
[2018-10-24] MEDS ORDERED: LEVOTHYROXINE 112MCG TABLET (0.112MG) PO SCH (06:00)
== END 2018-10-23 15:55 | disposition home or self-care (01) | DRG 881 ==
LOC: M PSY 15:15
PROVIDERS: ADMIT Psychiatry & Neurology Psychiatry; ATTEND Psychiatry & Neurology Psychiatry
DX: F32.9 Major depressive disorder, single episode, unspecified (principal); F43.21 Adjustment disorder with depressed mood; Z91.5 Personal history of self-harm